=== PATIENT | male | born 1975 | race Two or more races ===

== ENCOUNTER 2018-03-20 08:52 | Inpatient (IN) | payer OTHER ==
[2018-03-20 10:01] VITALS: BMI 25.8
--- NOTE | 2018-03-20 10:15 | HP ---
COWS - Scale Resting Pulse: 0= [place] 80 or Below Sweatin= Chills/Flushing Restless Observation: 3= Extraneous Movement Pupil Size: 1= Pupils >than Normal Bone or Joint Aches: 2= Severe Diffuse Aches Runny Nose/ Eye Tearin= Runny Nose/Eyes GI Upset > 30mins: 3= Vomiting/Diarrhea Tremor Observation: 2= Slight Tremor Visible Yawning Observation: 2= >3x During Session Anxiety or Irritability: 2=Irritable/Anxious Goose Flesh Skin: 0=Smooth Skin COWS Score: 18 CIWA Score - Admission Criteria OASAS Guidelines: Admission for Medically Managed Detox: Requires at least one of the followin. CIWA greater than 12 2. Seizures within the past 24 hours 3. Delirium tremens within the past 24 hours 4. Hallucinations within the past 24 hours 5. Acute intervention needed for co occurring medical disorder 6. Acute intervention needed for co occurring psychiatric disorder 7. Severe withdrawal that cannot be handled at a lower level of care (continued vomiting, continued diarrhea, abnormal vital signs) requiring intravenous medication and/or fluids 8. Admission ROS [facility] - [facility] Chief Complaint: i need help to stop using heroin Allergies/Adverse Reactions: Allergies Allergy/AdvReac Type Severity Reaction Status Date / Time No Known Allergies Allergy Verified 03/20/18 10:11 History of Present Illness: this 43 yers old male with heroin dependence,seeking detox,withdrawal symptom, last detox [facility] 12/11 completed nicotine dependence weight loss multiple admissions in detox but keep relapsing longest period of sobriety 5 years plan for rehab after detox - Ebola screening Have you traveled outside of the country in the last 21 days: No (N) Have you had contact with anyone from an Ebola affected area: No Have you been sick,other than usual withdrawal symptoms: No Do you have a fever: No - Review of Systems Constitutional: Chills, Loss of Appetite, Malaise, Night Sweats, Changes in sleep, Weakness, Unintentional Wgt. Loss EENT: reports: Tearing, Nose Congestion Respiratory: reports: No Symptoms reported Cardiac: reports: No Symptoms Reported GI: reports: Diarrhea, Nausea, Vomiting, Abdominal cramping : reports: No Symptoms Reported Integumentary: reports: Dryness Neuro: reports: Headache, Tremors Endocrine: reports: No Symptoms Reported Hematology: reports: No Symptoms Reported Psychiatric: reports: No Sypmtoms Reported, Judgement Intact, Mood/Affect Appropiate, Orientated x3, other Patient History - Patient Medical History Hx Anemia: No Hx Asthma: No Hx Chronic Obstructive Pulmonary Disease (COPD): No Hx Cancer: No Hx Cardiac Disorders: No Hx Congestive Heart Failure: No Hx Hypertension: No Hx Hypercholesterolemia: No Hx Pacemaker: No HX Cerebrovascular Accident: No Hx Seizures: No Hx Dementia: No Hx Diabetes: No Hx Gastrointestinal Disorders: No Hx Liver Disease: No Hx Genitourinary Disorders: No Hx Sexually Transmitted Disorders: No Hx Renal Disease (ESRD): No Hx Thyroid Disease: No Hx Human Immunodeficiency Virus (HIV): No (last 09/10 negative) Hx Hepatitis C: No Hx Depression: No Hx Suicide Attempt: No Hx Bipolar Disorder: No Hx Schizophrenia: No Other Medical History: no suicidal,no homicidal - Patient Surgical History Past Surgical History: No - PPD History Previous Implant?: Yes Documented Results: Negative w/o proof Implanted On Prior [facility] Admission?: No PPD to be Administered?: Yes - Smoking Cessation Smoking history: Current every day smoker Have you smoked in the past 12 months: Yes Aproximately how many cigarettes per day: 30 Hx Chewing Tobacco Use: No Initiated information on smoking cessation: Yes 'Breaking Loose' booklet given: 03/20/18 - Substance & Tx. History Hx Alcohol Use: No Hx Substance Use: Yes Substance Use Type: Heroin Hx Substance Use Treatment: Yes (12/11 [facility] completed) - Substances Abused Heroin Route: Inhalation Frequency: Daily Amount used: 8 bags Age of first use: 16 Date of Last Use: 03/19/18 Cocaine Route: Inhalation Frequency: 1-2 times per week Amount used: 40$ Age of first use: 19 Date of Last Use: 03/18/18 Family Disease History - Family Disease History Family History: Denies Admission Physical Exam BHS - Vital Signs Vital Signs: Vital Signs - 24 hr 03/20/18 09:58 Temperature 98.3 F Pulse Rate 54 L Respiratory 20 Rate Blood Pressure 111/68 - Physical General Appearance: Yes: Moderate Distress, Tremorous, Irritable, Sweating, Anxious HEENTM: Yes: Normal ENT Inspection, ARLETH, Pharynx Normal Respiratory: Yes: Lungs Clear, Normal Breath Sounds, No Respiratory Distress Neck: Yes: Within Normal Limits, Supple, Trachea in good position Breast: Yes: Within Normal Limits Cardiology: Yes: Bradycardia Abdominal: Yes: Within Normal Limits, Normal Bowel Sounds, Non Tender, Flat, Soft Genitourinary: Yes: Within Normal Limits Musculoskeletal: Yes: full range of Motion, Back pain, Muscle Pain Extremities: Yes: Tremors 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: Yes: Within Normal Limits, board filler II-XII NML intact, Alert, Motor Strength 5/5 Integumentary: Yes: Dry Lymphatic: Yes: Within Normal Limits - Diagnostic (1) Opioid dependence with withdrawal Current Visit: Yes Status: Acute (2) Cocaine dependence Current Visit: Yes Status: Acute (3) Weight loss Current Visit: Yes Status: Acute (4) Nicotine dependence Current Visit: Yes Status: Acute Cleared for Admission [facility] - Detox or Rehab [facility] Level of Care: Medically Managed Detox Regimen/Protocol: Methadone [facility] Breath Alcohol Content Breath Alcohol Content: 0 Urine Drug Screen - Results Drug Screen Negative: No Urine Drug Screen Results: ANA-Cocaine, OPI-Opiates, MTD-Methadone, OXY- Oxycodone, FEN-Fentanyl
[2018-03-20] MEDS ORDERED: MAGNESIUM CITRATE 300 ML BOTTLE PO PRN (10:24)
[2018-03-20] MEDS ORDERED: NICOTINE POLACRILEX 2 MG GUM BUC PRN (10:24)
[2018-03-20] MEDS ORDERED: MAG HYDROX/AL HYDROX/SIMETH 30 ML UNIT-DOSE CUP PO PRN (10:24)
[2018-03-20] MEDS ORDERED: guaiFENesin/D-METHORPHAN HB 10 ML UNIT-DOSE CUPS PO PRN (10:24)
[2018-03-20] MEDS ORDERED: MAGNESIUM HYDROX 2400MG/30ML ORAL SUSPENSION 30 ML CUP PO PRN (10:24)
[2018-03-20] MEDS ORDERED: IBUPROFEN 400 MG TABLET (FP) PO PRN (10:24)
[2018-03-20] MEDS ORDERED: LOPERAMIDE HCL 2 MG CAPSULE PO PRN (10:24)
[2018-03-20] MEDS ORDERED: MENTHOL/PHENOL 1 EACH UD MM PRN (10:24)
[2018-03-20] MEDS ORDERED: P-EPHED 60MG/TRIPROLIDI 2.5MG TABLET PO PRN (10:24)
[2018-03-20] MEDS ORDERED: hydrOXYzine PAMOATE 25 MG CAPSULE (FP) PO PRN (10:24)
[2018-03-20] MEDS ORDERED: ACETAMINOPHEN 325 MG TABLET (FP) PO PRN (10:24)
[2018-03-20] MEDS ORDERED: CYCLOBENZAPRINE HCL 10 MG TABLET (FP) PO PRN (10:26)
[2018-03-20] MEDS ORDERED: METHADONE HCL 10 MG TABLET (FOR DETOX USE ONLY) PO ONE ×2 (10:50→23:00)
[2018-03-20] MEDS: NICOTINE 21 MG/24 HOURS TOPICAL PATCH TD SCH (12:29)
--- NOTE | 2018-03-20 16:46 | EKG ---
Test Reason : Blood Pressure : / mmHG Vent. Rate : 059 BPM Atrial Rate : 059 BPM P-R Int : 148 ms QRS Dur : 086 ms QT Int : 428 ms P-R-T Axes : 003 -13 006 degrees QTc Int : 423 ms SINUS BRADYCARDIA OTHERWISE NORMAL ECG NO PREVIOUS ECGS AVAILABLE Confirmed by ENRIQUE DELANEY MD ([id number]) on 03/20/2018 4:46:26 PM Referred By: Confirmed By:ENRIQUE DELANEY MD
[2018-03-20 18:33] LABS: URINE APPEARANCE SLCLOUDY; URINE BILIRUBIN NEGATIVE (<2.0 mg/dL); URINE COLOR YELLOW; URINE GLUCOSE (UA) NEGATIVE (NEGATIVE); URINE KETONE NEGATIVE (NEGATIVE); URINE LEUK ESTERASE NEGATIVE (NEGATIVE); URINE NITRITE NEGATIVE (NEGATIVE); URINE PROTEIN NEGATIVE (NEGATIVE); URINE UROBILINOGEN NEGATIVE mg/dL (0.2-1.0)
[2018-03-20] MEDS ORDERED: MELATONIN 5 MG TABLETS PO PRN (22:00)
[2018-03-20] MEDS: THIAMINE HCL 100 MG TABLET (FP) PO SCH (22:21)
[2018-03-20] MEDS: cloNIDine HCL 0.1 MG TABLET PO SCH (22:22)
[2018-03-20] MEDS: diazePAM 5 MG TABLET PO PRN (22:22)
[2018-03-21] MEDS ORDERED: METHADONE HCL 10 MG TABLET (FOR DETOX USE ONLY) PO ONE (10:00)
[2018-03-21] MEDS: PRENATAL VITAMINS W/ FOLIC ACID TABLET (FP) PO SCH (10:18)
[2018-03-21] MEDS: NICOTINE 21 MG/24 HOURS TOPICAL PATCH TD SCH (10:19)
[2018-03-21] MEDS: cloNIDine HCL 0.1 MG TABLET PO SCH ×2 (10:19→22:12)
[2018-03-21] MEDS: diazePAM 5 MG TABLET PO PRN (10:19)
--- NOTE | 2018-03-21 10:33 | PN ---
BHS COWS - Scale Resting Pulse: 0= [place] 80 or Below Sweatin=Flushed/Facial Moisture Restless Observation: 1= Difficult to Sit Still Pupil Size: 0= Normal to Room Light Bone or Joint Aches: 2= Severe Diffuse Aches Runny Nose/ Eye Tearin= Runny Nose/Eyes GI Upset > 30mins: 1= Stomach Cramp Tremor Observation of Outstretched Hands: 2= Slight Tremor Visible Yawning Observation: 2= >3x During Session Anxiety or Irritability: 2=Irritable/Anxious Goose Flesh Skin: 3=Piloerection COWS Score: 17 BHS Progress Note (SOAP) Subjective: sweats shakes interrupted sleep body aches agitation chills nasal congestion Objective: 03/21/18 10:32 Vital Signs Temperature 97.5 F L 03/21/18 09:58 Pulse Rate 58 L 03/21/18 09:58 Respiratory Rate 16 03/21/18 09:58 Blood Pressure 131/78 03/21/18 09:58 O2 Sat by Pulse Oximetry (%) Laboratory Tests 03/20/18 11:20 Urine Color Yellow Urine Appearance Slcloudy Urine pH 5.0 Ur Specific [place] 1.027 Urine Protein Negative Urine Glucose (UA) Negative Urine Ketones Negative Urine Blood Negative Urine Nitrite Negative Urine Bilirubin Negative Urine Urobilinogen Negative Ur Leukocyte Esterase Negative labs pending aaox3 ambulating no acute distress Assessment: 03/21/18 10:44 withdrawal sx Plan: continue detox increase fluids labs pending
[2018-03-21 10:58] LABS: HEMATOCRIT 40.5 % (35.4-49); MCH 31.1 pg (25.7-33.7); MEAN CELL VOLUME 97.2 fl (80-96); MEAN PLT VOLUME 10.3 fl (7.5-11.1); PLATELET COUNT 165 K/MM3 (134-434); RBC 4.17 M/mm3 (4.00-5.60); RDW 12.8 % (11.9-15.9); WHITE BLOOD COUNT 9.6 K/mm3 (4.0-10.0)
[2018-03-21 11:37] LABS: ALK PHOS 82 U/L (45-117); ANION GAP 6 MMOL/L (8-16); BILIRUBIN,TOTAL 0.6 mg/dL (0.2-1); BLOOD UREA NITROGEN 15 mg/dL (7-18); CALCIUM 8.4 mg/dL (8.5-10.1); CHLORIDE 102 mmol/L (98-107); CO2 30 mmol/L (21-32); CREATININE 0.9 mg/dL (0.55-1.3); GLUCOSE,RANDOM 132 mg/dL (74-106); POTASSIUM 4.1 mmol/L (3.5-5.1); SGOT/AST 17 U/L (15-37); SGPT/ALT 28 U/L (13-61); SODIUM 137 mmol/L (136-145); TOT PROT 6.7 g/dl (6.4-8.2)
[2018-03-21] MEDS: THIAMINE HCL 100 MG TABLET (FP) PO SCH (22:12)
[2018-03-22] MEDS ORDERED: METHADONE HCL 5 MG TABLET (FOR DETOX USE ONLY) PO ONE (10:00)
[2018-03-22] MEDS: cloNIDine HCL 0.1 MG TABLET PO SCH ×2 (10:05→22:31)
[2018-03-22] MEDS: diazePAM 5 MG TABLET PO PRN ×2 (10:08→22:23)
[2018-03-22] MEDS: NICOTINE 21 MG/24 HOURS TOPICAL PATCH TD SCH (10:09)
[2018-03-22] MEDS: PRENATAL VITAMINS W/ FOLIC ACID TABLET (FP) PO SCH (10:09)
--- NOTE | 2018-03-22 10:45 | PN ---
S COWS - Scale Resting Pulse: 0= [place] 80 or Below Sweatin=Flushed/Facial Moisture Restless Observation: 1= Difficult to Sit Still Pupil Size: 0= Normal to Room Light Bone or Joint Aches: 2= Severe Diffuse Aches Runny Nose/ Eye Tearin= Runny Nose/Eyes GI Upset > 30mins: 0= None Tremor Observation of Outstretched Hands: 2= Slight Tremor Visible Yawning Observation: 1= 1-2x During Session Anxiety or Irritability: 2=Irritable/Anxious Goose Flesh Skin: 3=Piloerection COWS Score: 15 S Progress Note (SOAP) Subjective: nasal congestions teary eyes sweats dry mouth/sore throat chills Objective: 03/22/18 10:42 Vital Signs Temperature 97.8 F 03/22/18 09:11 Pulse Rate 53 L 03/22/18 09:11 Respiratory Rate 18 03/22/18 09:11 Blood Pressure 112/58 L 03/22/18 09:11 O2 Sat by Pulse Oximetry (%) Laboratory Tests 03/20/18 03/21/18 03/21/18 11:20 05:45 05:45 WBC 9.6 RBC 4.17 Hgb 13.0 Hct 40.5 MCV 97.2 H MCH 31.1 MCHC 32.0 RDW 12.8 Plt Count 165 MPV 10.3 Sodium 137 Potassium 4.1 Chloride 102 Carbon Dioxide 30 Anion Gap 6 L BUN 15 Creatinine 0.9 Creat Clearance w eGFR > 60 Random Glucose 132 H Calcium 8.4 L Total Bilirubin 0.6 AST 17 ALT 28 Alkaline Phosphatase 82 Total Protein 6.7 Albumin 4.0 Urine Color Yellow Urine Appearance Slcloudy Urine pH 5.0 Ur Specific [place] 1.027 Urine Protein Negative Urine Glucose (UA) Negative Urine Ketones Negative Urine Blood Negative Urine Nitrite Negative Urine Bilirubin Negative Urine Urobilinogen Negative Ur Leukocyte Esterase Negative RPR Titer 03/21/18 05:45 WBC RBC Hgb Hct MCV MCH MCHC RDW Plt Count MPV Sodium Potassium Chloride Carbon Dioxide Anion Gap BUN Creatinine Creat Clearance w eGFR Random Glucose Calcium Total Bilirubin AST ALT Alkaline Phosphatase Total Protein Albumin Urine Color Urine Appearance Urine pH Ur Specific [place] Urine Protein Urine Glucose (UA) Urine Ketones Urine Blood Urine Nitrite Urine Bilirubin Urine Urobilinogen Ur Leukocyte Esterase RPR Titer Nonreactive labs noted aaox3 ambulating no acute distress Assessment: 03/22/18 10:43 withdrawal sx mouth/throat assessed; no redness noted no s/s of throat infection noted Plan: continue detox increase fluids ocean spray throat lozenges try to keep room cool; apply less heat from radiator
[2018-03-22] MEDS ORDERED: SODIUM CHLORIDE NASAL SPRAY 44 ML BOTTLE NS PRN (11:30)
[2018-03-22] MEDS: THIAMINE HCL 100 MG TABLET (FP) PO SCH (22:31)
[2018-03-22] MEDS ORDERED: PT OWN MED DRAWER 7, Y5N ONE (23:05)
[2018-03-23 09:30] VITALS: BP 110/58; PULSE 58; TEMP 97.7
[2018-03-23] MEDS ORDERED: METHADONE HCL 5 MG TABLET (FOR DETOX USE ONLY) PO ONE (10:00)
[2018-03-23] MEDS: PRENATAL VITAMINS W/ FOLIC ACID TABLET (FP) PO SCH (10:11)
[2018-03-23] MEDS: NICOTINE 21 MG/24 HOURS TOPICAL PATCH TD SCH (10:11)
[2018-03-23] MEDS: cloNIDine HCL 0.1 MG TABLET PO SCH (10:11)
--- NOTE | 2018-03-23 10:44 | PN ---
S Progress Note Note: PATIENT CONTINUES WITH DETOX REGIMEN. C/O INTERRUPTED SLEEP. PULLED BLANKET OVER FACE AND DID NOT WANT TO SPEAK WITH PROVIDER. Vital Signs Temperature 97.7 F 03/23/18 09:30 Pulse Rate 58 L 03/23/18 09:30 Respiratory Rate 16 03/23/18 09:30 Blood Pressure 110/58 L 03/23/18 09:30 O2 Sat by Pulse Oximetry (%) Laboratory Tests 03/20/18 03/21/18 03/21/18 11:20 05:45 05:45 WBC 9.6 RBC 4.17 Hgb 13.0 Hct 40.5 MCV 97.2 H MCH 31.1 MCHC 32.0 RDW 12.8 Plt Count 165 MPV 10.3 Sodium 137 Potassium 4.1 Chloride 102 Carbon Dioxide 30 Anion Gap 6 L BUN 15 Creatinine 0.9 Creat Clearance w eGFR > 60 Random Glucose 132 H Calcium 8.4 L Total Bilirubin 0.6 AST 17 ALT 28 Alkaline Phosphatase 82 Total Protein 6.7 Albumin 4.0 Urine Color Yellow Urine Appearance Slcloudy Urine pH 5.0 Ur Specific [place] 1.027 Urine Protein Negative Urine Glucose (UA) Negative Urine Ketones Negative Urine Blood Negative Urine Nitrite Negative Urine Bilirubin Negative Urine Urobilinogen Negative Ur Leukocyte Esterase Negative RPR Titer 03/21/18 05:45 WBC RBC Hgb Hct MCV MCH MCHC RDW Plt Count MPV Sodium Potassium Chloride Carbon Dioxide Anion Gap BUN Creatinine Creat Clearance w eGFR Random Glucose Calcium Total Bilirubin AST ALT Alkaline Phosphatase Total Protein Albumin Urine Color Urine Appearance Urine pH Ur Specific [place] Urine Protein Urine Glucose (UA) Urine Ketones Urine Blood Urine Nitrite Urine Bilirubin Urine Urobilinogen Ur Leukocyte Esterase RPR Titer Nonreactive PE; ALERT AND ORIENTED X 3 SLEEPY AND TIRED A/P WITHDRAWAL SX CONTINUE DETOX CONTINUE TO MONITOR
--- NOTE | 2018-03-23 12:40 | DS ---
[facility] Detox Discharge Summary Admission Date: 03/20/18 Discharge Date: 03/23/18 - History Present History: Cocaine Dependence, Opioid Dependence Additional Comments: PATIENT REQUESTED TO SIGN OUT AMA. PATIENT ENCOURAGED TO COMPLETE DETOX WITH NO EFFECT. PATIENT EXPLAINED RISK FACTORS OF RELAPSE WITH SIGNING OUT AND ENCOURAGED TO ATTEND GROUP MEETINGS, N/A. PATIENT ADVISED BY STAFF TO SEEK MEDICAL ATTENTION FOR WORSENING WITHDRAWAL SYMPTOMS. - Physical Exam Results Vital Signs: Vital Signs Temperature 97.7 F 03/23/18 09:30 Pulse Rate 58 L 03/23/18 09:30 Respiratory Rate 16 03/23/18 09:30 Blood Pressure 110/58 L 03/23/18 09:30 O2 Sat by Pulse Oximetry (%) - Medication Discharge Medications: Ambulatory Orders NK [No Known Home Medication] 03/20/18 - Diagnosis (1) Opioid dependence with withdrawal Current Visit: Yes Status: Acute - AMA Did Patient Leave Against Medical Advice: Yes
[2018-03-24] MEDS ORDERED: METHADONE HCL 10 MG TABLET (FOR DETOX USE ONLY) PO ONE (10:00)
[2018-03-25] MEDS ORDERED: METHADONE HCL 5 MG TABLET (FOR DETOX USE ONLY) PO ONE (06:00)
== END 2018-03-23 11:04 | disposition left against medical advice (07) | DRG 770 ==
LOC: YASAS 08:52 → Y6N 10:24
PROC: HZ2ZZZZ Detoxification Services for Substance Abuse Treatment (ICD-10-PCS; principal; 2018-03-20)
DX: F11.23 Opioid dependence with withdrawal (principal); F14.20 Cocaine dependence, uncomplicated; F17.210 Nicotine dependence, cigarettes, uncomplicated; R63.4 Abnormal weight loss; Z68.25 Body mass index [BMI] 25.0-25.9, adult
CPT/HCPCS: 36415; 80053; 81003; 85027; 86593; 93005; 93010; J0735

== ENCOUNTER 2018-04-22 15:29 | Inpatient (IN) | payer OTHER ==
[2018-04-22 22:34] VITALS: BMI 25.8
--- NOTE | 2018-04-22 23:26 | HP ---
"COWS - Scale Resting Pulse: 0= [place] 80 or Below Sweatin=Flushed/Facial Moisture Restless Observation: 3= Extraneous Movement Pupil Size: 2= Moderately Dilated (Pupils = 6 mm) Bone or Joint Aches: 2= Severe Diffuse Aches Runny Nose/ Eye Tearin= Constantly Teary/Runny GI Upset > 30mins: 1= Stomach Cramp Tremor Observation: 2= Slight Tremor Visible Yawning Observation: 1= 1-2x During Session Anxiety or Irritability: 1=Feels Anxious/Irritable Goose Flesh Skin: 0=Smooth Skin COWS Score: 18 CIWA Score - Admission Criteria OASAS Guidelines: Admission for Medically Managed Detox: Requires at least one of the followin. CIWA greater than 12 2. Seizures within the past 24 hours 3. Delirium tremens within the past 24 hours 4. Hallucinations within the past 24 hours 5. Acute intervention needed for co occurring medical disorder 6. Acute intervention needed for co occurring psychiatric disorder 7. Severe withdrawal that cannot be handled at a lower level of care (continued vomiting, continued diarrhea, abnormal vital signs) requiring intravenous medication and/or fluids 8. Admission ROS [facility] - [facility] Chief Complaint: Here for heroin withdrawal. Allergies/Adverse Reactions: Allergies Allergy/AdvReac Type Severity Reaction Status Date / Time No Known Allergies Allergy Verified 04/22/18 22:49 History of Present Illness: Here 1 month ago and relapsed after 2 days. Heroin use since age 18. Cocaine use since age 19. Nicotine use since age 17. Denies seizures,blackouts, or overdoses. States longest hx sobriety was 5 years, but that was over 5 years ago. EKG from 03/20/18 reviewed - NSR w/Bradycardia. QT Int: 428. Denies chest pain / SOB. Search Terms: Camacho Cortez, 1975 Search Date: 04/22/2018 11:16:46 PM The Drug Utilization Report below displays all of the controlled substance prescriptions, if any, that your patient has filled in the last twelve months. The information displayed on this report is compiled from pharmacy submissions to the Department, and accurately reflects the information as submitted by the pharmacies. This report was requested by: Aneta Smallwood | Reference #: [id number] There are no results for the search terms that you entered. Exam Limitations: No Limitations - Ebola screening Have you traveled outside of the country in the last 21 days: No Have you had contact with anyone from an Ebola affected area: No Have you been sick,other than usual withdrawal symptoms: No Do you have a fever: No - Review of Systems Constitutional: Chills, Diaphoresis EENT: reports: Blurred Vision, Nose Congestion Respiratory: reports: No Symptoms reported Cardiac: reports: No Symptoms Reported GI: reports: Nausea : reports: No Symptoms Reported Musculoskeletal: reports: Back Pain (r/t to withdrawal), Joint Pain (r/t to withdrawal), Muscle Pain (r/t to withdrawal) Integumentary: reports: No Symptoms Reported Neuro: reports: Headache (Mild), Tremors Endocrine: reports: Increased Thirst Hematology: reports: No Symptoms Reported Psychiatric: reports: Judgement Intact, Orientated x3, Agitated, Anxious Patient History - Patient Medical History Hx Anemia: No Hx Asthma: No Hx Chronic Obstructive Pulmonary Disease (COPD): No Hx Cancer: No Hx Cardiac Disorders: No Hx Congestive Heart Failure: No Hx Hypertension: No Hx Hypercholesterolemia: No Hx Pacemaker: No HX Cerebrovascular Accident: No Hx Seizures: No Hx Dementia: No Hx Diabetes: No Hx Gastrointestinal Disorders: No Hx Liver Disease: No Hx Genitourinary Disorders: No Hx Sexually Transmitted Disorders: No Hx Renal Disease (ESRD): No Hx Thyroid Disease: No Hx Human Immunodeficiency Virus (HIV): No (last 09/10 negative) Hx Hepatitis C: No Hx Depression: No Hx Suicide Attempt: No Hx Bipolar Disorder: No Hx Schizophrenia: No - Patient Surgical History Past Surgical History: No Hx Neurologic Surgery: No Hx Cataract Extraction: No Hx Cardiac Surgery: No Hx Lung Surgery: No Hx Breast Surgery: No Hx Breast Biopsy: No Hx Abdominal Surgery: No Hx Appendectomy: No Hx Cholecystectomy: No Hx Genitourinary Surgery: No Hx Section: No Hx Orthopedic Surgery: No Anesthesia Reaction: No - PPD History Previous Implant?: Yes Documented Results: Negative w/proof Implanted On Prior R Admission?: Yes Date: 03/22/18 PPD to be Administered?: No - Smoking Cessation Smoking history: Current every day smoker Have you smoked in the past 12 months: Yes Aproximately how many cigarettes per day: 30 Cigars Per Day: 0 Hx Chewing Tobacco Use: No Initiated information on smoking cessation: Yes 'Breaking Loose' booklet given: 04/22/18 - Substance & Tx. History Hx Alcohol Use: No Hx Substance Use: Yes Substance Use Type: Cocaine, Heroin Hx Substance Use Treatment: Yes (detox, rehab) - Substances Abused Heroin Route: sniff Frequency: Daily Amount used: 9 bags Age of first use: 18 Date of Last Use: 04/22/18 Cocaine Route: Smoking Frequency: Daily Amount used: $40 Age of first use: 19 Date of Last Use: 04/22/18 Admission Physical Exam [facility] - Vital Signs Vital Signs: Vital Signs - 24 hr 04/22/18 22:33 Temperature 98.1 F Pulse Rate 67 Respiratory 18 Rate Blood Pressure 124/66 - Physical General Appearance: Yes: Nourished, Appropriately Dressed, Mild Distress, Tremorous, Sweating, Anxious HEENTM: Yes: EOMI, Hearing grossly Normal, Normocephalic, Normal Voice, ARLETH ( Pupils = 6 mm), Pharynx Normal, Rhinorrhea, Other (Tearing) Respiratory: Yes: Chest Non-Tender, Lungs Clear, Normal Breath Sounds, No Respiratory Distress Neck: Yes: No masses,lesions,Nodules, Supple Breast: Yes: Breast Exam Deferred Cardiology: Yes: Regular Rhythm, Regular Rate, S1, S2 Abdominal: Yes: Non Tender, Soft, Increased Bowel Sounds Genitourinary: Yes: Within Normal Limits Back: Yes: Normal Inspection Musculoskeletal: Yes: full range of Motion, Gait Steady Extremities: Yes: Normal Capillary Refill, Normal Range of Motion, Non-Tender, Tremors (Tremors at rest which increase w/ arm elevation) 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: Yes: inspector printed circuit boards II-XII NML intact, Fully Oriented, Motor Strength 5/5, Normal Mood/Affect Integumentary: Yes: Normal Color, Warm Lymphatic: Yes: Within Normal Limits - Diagnostic (1) Cocaine dependence Current Visit: Yes Status: Chronic Qualifiers: Substance use status: uncomplicated Qualified Code(s): F14.20 - Cocaine dependence, uncomplicated (2) Nicotine dependence Current Visit: Yes Status: Chronic Qualifiers: Nicotine product type: cigarettes Substance use status: uncomplicated Qualified Code(s): F17.210 - Nicotine dependence, cigarettes, uncomplicated (3) Opioid dependence with withdrawal Current Visit: Yes Status: Acute Cleared for Admission [facility] - Detox or Rehab [facility] Level of Care: Medically Managed Detox Regimen/Protocol: Methadone [facility] Breath Alcohol Content Breath Alcohol Content: 0 Urine Drug Screen - Results Drug Screen Negative: No Urine Drug Screen Results: ANA-Cocaine, OPI-Opiates, FEN-Fentanyl"
[2018-04-22] MEDS ORDERED: ACETAMINOPHEN 325 MG TABLET (FP) PO PRN (23:42)
[2018-04-22] MEDS ORDERED: P-EPHED 60MG/TRIPROLIDI 2.5MG TABLET PO PRN (23:42)
[2018-04-22] MEDS ORDERED: IBUPROFEN 400 MG TABLET (FP) PO PRN (23:42)
[2018-04-22] MEDS ORDERED: MENTHOL/PHENOL 1 EACH UD MM PRN (23:42)
[2018-04-22] MEDS ORDERED: MAG HYDROX/AL HYDROX/SIMETH 30 ML UNIT-DOSE CUP PO PRN (23:42)
[2018-04-22] MEDS ORDERED: MAGNESIUM HYDROX 2400MG/30ML ORAL SUSPENSION 30 ML CUP PO PRN (23:42)
[2018-04-22] MEDS ORDERED: LOPERAMIDE HCL 2 MG CAPSULE PO PRN (23:42)
[2018-04-22] MEDS ORDERED: MAGNESIUM CITRATE 300 ML BOTTLE PO PRN (23:42)
[2018-04-22] MEDS ORDERED: NICOTINE POLACRILEX 4 MG GUM BUC PRN (23:48)
[2018-04-23] MEDS ORDERED: METHADONE HCL 10 MG TABLET (FOR DETOX USE ONLY) PO ONE ×3 (00:13→23:00)
[2018-04-23] MEDS: diazePAM 5 MG TABLET PO PRN ×3 (00:52→22:21)
[2018-04-23] MEDS: PRENATAL VITAMINS W/ FOLIC ACID TABLET (FP) PO SCH (10:17)
[2018-04-23] MEDS: NICOTINE 21 MG/24 HOURS TOPICAL PATCH TD SCH (10:18)
[2018-04-23 10:51] LABS: HEMATOCRIT 39.9 % (35.4-49); HEMOGLOBIN 13.5 GM/dL (11.7-16.9); MCH 32.1 pg (25.7-33.7); MCHC 33.9 g/dl (32.0-35.9); MEAN CELL VOLUME 94.9 fl (80-96); MEAN PLT VOLUME 10.2 fl (7.5-11.1); PLATELET COUNT 147 K/MM3 (134-434); RDW 13.1 % (11.9-15.9); WHITE BLOOD COUNT 6.5 K/mm3 (4.0-10.0)
--- NOTE | 2018-04-23 11:07 | PN ---
BHS COWS - Scale Resting Pulse: 0= [place] 80 or Below Sweatin= Chills/Flushing Restless Observation: 1= Difficult to Sit Still Pupil Size: 1= Pupils >than Normal Bone or Joint Aches: 2= Severe Diffuse Aches Runny Nose/ Eye Tearin= Nasal Congestion GI Upset > 30mins: 2= Nausea/Diarrhea Tremor Observation of Outstretched Hands: 2= Slight Tremor Visible Yawning Observation: 2= >3x During Session Anxiety or Irritability: 2=Irritable/Anxious Goose Flesh Skin: 0=Smooth Skin COWS Score: 14 BHS Progress Note (SOAP) Subjective: body aches joints pain tremor sweating Objective: 04/23/18 11:06 Vital Signs Temperature 97.8 F 04/23/18 09:08 Pulse Rate 64 04/23/18 09:08 Respiratory Rate 18 04/23/18 09:08 Blood Pressure 107/72 04/23/18 09:08 O2 Sat by Pulse Oximetry (%) Laboratory Last Values WBC 6.5 K/mm3 (4.0-10.0) 04/23/18 07:00 RBC 4.20 M/mm3 (4.00-5.60) 04/23/18 07:00 Hgb 13.5 GM/dL (11.7-16.9) 04/23/18 07:00 Hct 39.9 % (35.4-49) 04/23/18 07:00 MCV 94.9 fl (80-96) 04/23/18 07:00 MCH 32.1 pg (25.7-33.7) 04/23/18 07:00 MCHC 33.9 g/dl (32.0-35.9) 04/23/18 07:00 RDW 13.1 % (11.9-15.9) 04/23/18 07:00 Plt Count 147 K/MM3 (134-434) 04/23/18 07:00 MPV 10.2 fl (7.5-11.1) 04/23/18 07:00 lab noted Assessment: 04/23/18 11:06 withdrawal sx Plan: continue detox
[2018-04-23 11:11] LABS: ALBUMIN 3.7 g/dl (3.4-5.0); ALK PHOS 69 U/L (45-117); ANION GAP 7 MMOL/L (8-16); BILIRUBIN,TOTAL 0.8 mg/dL (0.2-1); BLOOD UREA NITROGEN 13 mg/dL (7-18); CALCIUM 8.9 mg/dL (8.5-10.1); CHLORIDE 106 mmol/L (98-107); CO2 29 mmol/L (21-32); CREATININE 0.8 mg/dL (0.55-1.3); GLUCOSE,RANDOM 85 mg/dL (74-106); POTASSIUM 4.1 mmol/L (3.5-5.1); SGOT/AST 14 U/L (15-37); SGPT/ALT 24 U/L (13-61); SODIUM 142 mmol/L (136-145); TOT PROT 6.3 g/dl (6.4-8.2)
[2018-04-23 12:07] LABS: URINE APPEARANCE CLEAR; URINE BILIRUBIN NEGATIVE (<2.0 mg/dL); URINE COLOR LTYELLOW; URINE GLUCOSE (UA) NEGATIVE (NEGATIVE); URINE KETONE NEGATIVE (NEGATIVE); URINE LEUK ESTERASE NEGATIVE (NEGATIVE); URINE NITRITE NEGATIVE (NEGATIVE); URINE PROTEIN NEGATIVE (NEGATIVE); URINE UROBILINOGEN NEGATIVE mg/dL (0.2-1.0)
[2018-04-23] MEDS: THIAMINE HCL 100 MG TABLET (FP) PO SCH (22:21)
--- NOTE | 2018-04-24 09:44 | PN ---
BHS COWS - Scale Resting Pulse: 0= [place] 80 or Below Sweatin= Chills/Flushing Restless Observation: 1= Difficult to Sit Still Pupil Size: 1= Pupils >than Normal Bone or Joint Aches: 1= Mild Discomfort Runny Nose/ Eye Tearin= Nasal Congestion GI Upset > 30mins: 1= Stomach Cramp Tremor Observation of Outstretched Hands: 2= Slight Tremor Visible Yawning Observation: 1= 1-2x During Session Anxiety or Irritability: 1=Feels Anxious/Irritable Goose Flesh Skin: 0=Smooth Skin COWS Score: 10 BHS Progress Note (SOAP) Subjective: tremor body aches joints pain sweating restlessness Objective: 04/24/18 09:43 Vital Signs Temperature 97.8 F 04/24/18 09:18 Pulse Rate 64 04/24/18 09:18 Respiratory Rate 18 04/24/18 09:18 Blood Pressure 109/61 04/24/18 09:18 O2 Sat by Pulse Oximetry (%) Laboratory Last Values WBC 6.5 K/mm3 (4.0-10.0) 04/23/18 07:00 RBC 4.20 M/mm3 (4.00-5.60) 04/23/18 07:00 Hgb 13.5 GM/dL (11.7-16.9) 04/23/18 07:00 Hct 39.9 % (35.4-49) 04/23/18 07:00 MCV 94.9 fl (80-96) 04/23/18 07:00 MCH 32.1 pg (25.7-33.7) 04/23/18 07:00 MCHC 33.9 g/dl (32.0-35.9) 04/23/18 07:00 RDW 13.1 % (11.9-15.9) 04/23/18 07:00 Plt Count 147 K/MM3 (134-434) 04/23/18 07:00 MPV 10.2 fl (7.5-11.1) 04/23/18 07:00 Sodium 142 mmol/L (136-145) 04/23/18 07:00 Potassium 4.1 mmol/L (3.5-5.1) 04/23/18 07:00 Chloride 106 mmol/L (98-107) 04/23/18 07:00 Carbon Dioxide 29 mmol/L (21-32) 04/23/18 07:00 Anion Gap 7 MMOL/L (8-16) L 04/23/18 07:00 BUN 13 mg/dL (7-18) 04/23/18 07:00 Creatinine 0.8 mg/dL (0.55-1.3) 04/23/18 07:00 Creat Clearance w eGFR > 60 (>60) 04/23/18 07:00 Random Glucose 85 mg/dL (74-106) 04/23/18 07:00 Calcium 8.9 mg/dL (8.5-10.1) 04/23/18 07:00 Total Bilirubin 0.8 mg/dL (0.2-1) 04/23/18 07:00 AST 14 U/L (15-37) L 04/23/18 07:00 ALT 24 U/L (13-61) 04/23/18 07:00 Alkaline Phosphatase 69 U/L (45-117) 04/23/18 07:00 Total Protein 6.3 g/dl (6.4-8.2) L 04/23/18 07:00 Albumin 3.7 g/dl (3.4-5.0) 04/23/18 07:00 Urine Color Ltyellow 04/23/18 08:00 Urine Appearance Clear 04/23/18 08:00 Urine pH 6.0 (5.0-8.0) 04/23/18 08:00 Ur Specific [place] 1.015 (1.010-1.035) 04/23/18 08:00 Urine Protein Negative (NEGATIVE) 04/23/18 08:00 Urine Glucose (UA) Negative (NEGATIVE) 04/23/18 08:00 Urine Ketones Negative (NEGATIVE) 04/23/18 08:00 Urine Blood Negative (NEGATIVE) 04/23/18 08:00 Urine Nitrite Negative (NEGATIVE) 04/23/18 08:00 Urine Bilirubin Negative (<2.0 mg/dL) 04/23/18 08:00 Urine Urobilinogen Negative mg/dL (0.2-1.0) 04/23/18 08:00 Ur Leukocyte Esterase Negative (NEGATIVE) 04/23/18 08:00 RPR Titer Nonreactive (NONREACTIVE) 04/23/18 07:00 lab noted Assessment: 04/24/18 09:43 withdrawal sx Plan: continue detox
[2018-04-24] MEDS ORDERED: METHADONE HCL 10 MG TABLET (FOR DETOX USE ONLY) PO ONE (10:00)
[2018-04-24] MEDS: PRENATAL VITAMINS W/ FOLIC ACID TABLET (FP) PO SCH (10:31)
[2018-04-24] MEDS: NICOTINE 21 MG/24 HOURS TOPICAL PATCH TD SCH (10:31)
[2018-04-24] MEDS: THIAMINE HCL 100 MG TABLET (FP) PO SCH (22:07)
[2018-04-24] MEDS: diazePAM 5 MG TABLET PO PRN (22:07)
[2018-04-24] MEDS: MELATONIN 5 MG TABLETS PO PRN (22:08)
[2018-04-25] MEDS ORDERED: BACLOFEN 10 MG TABLET (FP) PO ONE (09:46)
--- NOTE | 2018-04-25 09:51 | PN ---
BHS Progress Note (SOAP) Subjective: muscle cramping body aches tremor anxiety sweating Objective: 04/25/18 09:52 Vital Signs Temperature 97.0 F L 04/25/18 09:15 Pulse Rate 60 04/25/18 09:15 Respiratory Rate 18 04/25/18 09:15 Blood Pressure 106/60 04/25/18 09:15 O2 Sat by Pulse Oximetry (%) Laboratory Last Values WBC 6.5 K/mm3 (4.0-10.0) 04/23/18 07:00 RBC 4.20 M/mm3 (4.00-5.60) 04/23/18 07:00 Hgb 13.5 GM/dL (11.7-16.9) 04/23/18 07:00 Hct 39.9 % (35.4-49) 04/23/18 07:00 MCV 94.9 fl (80-96) 04/23/18 07:00 MCH 32.1 pg (25.7-33.7) 04/23/18 07:00 MCHC 33.9 g/dl (32.0-35.9) 04/23/18 07:00 RDW 13.1 % (11.9-15.9) 04/23/18 07:00 Plt Count 147 K/MM3 (134-434) 04/23/18 07:00 MPV 10.2 fl (7.5-11.1) 04/23/18 07:00 Sodium 142 mmol/L (136-145) 04/23/18 07:00 Potassium 4.1 mmol/L (3.5-5.1) 04/23/18 07:00 Chloride 106 mmol/L (98-107) 04/23/18 07:00 Carbon Dioxide 29 mmol/L (21-32) 04/23/18 07:00 Anion Gap 7 MMOL/L (8-16) L 04/23/18 07:00 BUN 13 mg/dL (7-18) 04/23/18 07:00 Creatinine 0.8 mg/dL (0.55-1.3) 04/23/18 07:00 Creat Clearance w eGFR > 60 (>60) 04/23/18 07:00 Random Glucose 85 mg/dL (74-106) 04/23/18 07:00 Calcium 8.9 mg/dL (8.5-10.1) 04/23/18 07:00 Total Bilirubin 0.8 mg/dL (0.2-1) 04/23/18 07:00 AST 14 U/L (15-37) L 04/23/18 07:00 ALT 24 U/L (13-61) 04/23/18 07:00 Alkaline Phosphatase 69 U/L (45-117) 04/23/18 07:00 Total Protein 6.3 g/dl (6.4-8.2) L 04/23/18 07:00 Albumin 3.7 g/dl (3.4-5.0) 04/23/18 07:00 Urine Color Ltyellow 04/23/18 08:00 Urine Appearance Clear 04/23/18 08:00 Urine pH 6.0 (5.0-8.0) 04/23/18 08:00 Ur Specific [place] 1.015 (1.010-1.035) 04/23/18 08:00 Urine Protein Negative (NEGATIVE) 04/23/18 08:00 Urine Glucose (UA) Negative (NEGATIVE) 04/23/18 08:00 Urine Ketones Negative (NEGATIVE) 04/23/18 08:00 Urine Blood Negative (NEGATIVE) 04/23/18 08:00 Urine Nitrite Negative (NEGATIVE) 04/23/18 08:00 Urine Bilirubin Negative (<2.0 mg/dL) 04/23/18 08:00 Urine Urobilinogen Negative mg/dL (0.2-1.0) 04/23/18 08:00 Ur Leukocyte Esterase Negative (NEGATIVE) 04/23/18 08:00 RPR Titer Nonreactive (NONREACTIVE) 04/23/18 07:00 lab noted Assessment: 04/25/18 09:52 withdrawal sx Plan: continue detox
[2018-04-25] MEDS ORDERED: METHADONE HCL 5 MG TABLET (FOR DETOX USE ONLY) PO ONE (10:00)
[2018-04-25] MEDS: PRENATAL VITAMINS W/ FOLIC ACID TABLET (FP) PO SCH (11:08)
[2018-04-25] MEDS: NICOTINE 21 MG/24 HOURS TOPICAL PATCH TD SCH (11:09)
[2018-04-25] MEDS: diazePAM 5 MG TABLET PO PRN (22:30)
[2018-04-25] MEDS: THIAMINE HCL 100 MG TABLET (FP) PO SCH (22:30)
[2018-04-25] MEDS: MELATONIN 5 MG TABLETS PO PRN (22:31)
[2018-04-26] MEDS ORDERED: METHADONE HCL 5 MG TABLET (FOR DETOX USE ONLY) PO ONE (10:00)
[2018-04-26] MEDS: PRENATAL VITAMINS W/ FOLIC ACID TABLET (FP) PO SCH (10:29)
[2018-04-26] MEDS: NICOTINE 21 MG/24 HOURS TOPICAL PATCH TD SCH (11:08)
--- NOTE | 2018-04-26 17:10 | PN ---
BHS Progress Note (SOAP) Subjective: Body Aches, Sweating, Anxious. Objective: PATIENT A & O X 3, OBSERVED AMBULATING ON UNIT. IN NO ACUTE DISTRESS. 04/26/18 17:11 Vital Signs Temperature 96.7 F L 04/26/18 17:07 Pulse Rate 62 04/26/18 17:07 Respiratory Rate 16 04/26/18 17:07 Blood Pressure 116/63 04/26/18 17:07 O2 Sat by Pulse Oximetry (%) Laboratory Tests 04/23/18 04/23/18 04/23/18 07:00 07:00 07:00 WBC 6.5 RBC 4.20 Hgb 13.5 Hct 39.9 MCV 94.9 MCH 32.1 MCHC 33.9 RDW 13.1 Plt Count 147 MPV 10.2 Sodium 142 Potassium 4.1 Chloride 106 Carbon Dioxide 29 Anion Gap 7 L BUN 13 Creatinine 0.8 Creat Clearance w eGFR > 60 Random Glucose 85 Calcium 8.9 Total Bilirubin 0.8 AST 14 L ALT 24 Alkaline Phosphatase 69 Total Protein 6.3 L Albumin 3.7 Urine Color Urine Appearance Urine pH Ur Specific [place] Urine Protein Urine Glucose (UA) Urine Ketones Urine Blood Urine Nitrite Urine Bilirubin Urine Urobilinogen Ur Leukocyte Esterase RPR Titer Nonreactive 04/23/18 08:00 WBC RBC Hgb Hct MCV MCH MCHC RDW Plt Count MPV Sodium Potassium Chloride Carbon Dioxide Anion Gap BUN Creatinine Creat Clearance w eGFR Random Glucose Calcium Total Bilirubin AST ALT Alkaline Phosphatase Total Protein Albumin Urine Color Ltyellow Urine Appearance Clear Urine pH 6.0 Ur Specific [place] 1.015 Urine Protein Negative Urine Glucose (UA) Negative Urine Ketones Negative Urine Blood Negative Urine Nitrite Negative Urine Bilirubin Negative Urine Urobilinogen Negative Ur Leukocyte Esterase Negative RPR Titer LABS NOTED. Assessment: 04/26/18 17:11 WITHDRAWAL SYMPTOMS. Plan: CONTINUE DETOX. INCREASE DAILY PO FLUID INTAKE.
[2018-04-26] MEDS: THIAMINE HCL 100 MG TABLET (FP) PO SCH (22:45)
[2018-04-26] MEDS: TOLNAFTATE 1% CREAM 15 GM TUBE TP SCH (22:46)
[2018-04-27] MEDS ORDERED: METHADONE HCL 10 MG TABLET (FOR DETOX USE ONLY) PO ONE (10:00)
[2018-04-27] MEDS: PRENATAL VITAMINS W/ FOLIC ACID TABLET (FP) PO SCH (10:18)
[2018-04-27] MEDS: NICOTINE 21 MG/24 HOURS TOPICAL PATCH TD SCH (10:19)
[2018-04-27] MEDS: TOLNAFTATE 1% CREAM 15 GM TUBE TP SCH ×2 (10:19→22:21)
--- NOTE | 2018-04-27 15:08 | PN ---
BHS Progress Note (SOAP) Subjective: Body Aches, Sweating. Objective: PATIENT A & O X 3, OBSERVED AMBULATING ON UNIT. IN NO ACUTE DISTRESS. 04/27/18 15:07 Vital Signs Temperature 96.4 F L 04/27/18 13:47 Pulse Rate 69 04/27/18 13:47 Respiratory Rate 18 04/27/18 13:47 Blood Pressure 120/74 04/27/18 13:47 O2 Sat by Pulse Oximetry (%) Laboratory Tests 04/23/18 04/23/18 04/23/18 07:00 07:00 07:00 WBC 6.5 RBC 4.20 Hgb 13.5 Hct 39.9 MCV 94.9 MCH 32.1 MCHC 33.9 RDW 13.1 Plt Count 147 MPV 10.2 Sodium 142 Potassium 4.1 Chloride 106 Carbon Dioxide 29 Anion Gap 7 L BUN 13 Creatinine 0.8 Creat Clearance w eGFR > 60 Random Glucose 85 Calcium 8.9 Total Bilirubin 0.8 AST 14 L ALT 24 Alkaline Phosphatase 69 Total Protein 6.3 L Albumin 3.7 Urine Color Urine Appearance Urine pH Ur Specific [place] Urine Protein Urine Glucose (UA) Urine Ketones Urine Blood Urine Nitrite Urine Bilirubin Urine Urobilinogen Ur Leukocyte Esterase RPR Titer Nonreactive 04/23/18 08:00 WBC RBC Hgb Hct MCV MCH MCHC RDW Plt Count MPV Sodium Potassium Chloride Carbon Dioxide Anion Gap BUN Creatinine Creat Clearance w eGFR Random Glucose Calcium Total Bilirubin AST ALT Alkaline Phosphatase Total Protein Albumin Urine Color Ltyellow Urine Appearance Clear Urine pH 6.0 Ur Specific [place] 1.015 Urine Protein Negative Urine Glucose (UA) Negative Urine Ketones Negative Urine Blood Negative Urine Nitrite Negative Urine Bilirubin Negative Urine Urobilinogen Negative Ur Leukocyte Esterase Negative RPR Titer LABS NOTED. Assessment: 04/27/18 15:07 WITHDRAWAL SYMPTOMS. Plan: CONTINUE DETOX. PATIENT SCHEDULED FOR D/C TOMORROW.
[2018-04-27] MEDS: THIAMINE HCL 100 MG TABLET (FP) PO SCH (22:21)
[2018-04-28] MEDS ORDERED: METHADONE HCL 5 MG TABLET (FOR DETOX USE ONLY) PO ONE (06:00)
[2018-04-28 06:19] VITALS: BP 122/75; PULSE 57; TEMP 97.1
--- NOTE | 2018-04-28 08:44 | DS ---
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 has not assessed nor evaluated the patient - Physical Exam Results Vital Signs: Vital Signs Temperature 97.1 F L 04/28/18 06:19 Pulse Rate 57 L 04/28/18 06:19 Respiratory Rate 18 04/28/18 06:19 Blood Pressure 122/75 04/28/18 06:19 O2 Sat by Pulse Oximetry (%) Pertinent Admission Physical Exam Findings: opiate withdrawal sx Laboratory Last Values WBC 6.5 K/mm3 (4.0-10.0) 04/23/18 07:00 RBC 4.20 M/mm3 (4.00-5.60) 04/23/18 07:00 Hgb 13.5 GM/dL (11.7-16.9) 04/23/18 07:00 Hct 39.9 % (35.4-49) 04/23/18 07:00 MCV 94.9 fl (80-96) 04/23/18 07:00 MCH 32.1 pg (25.7-33.7) 04/23/18 07:00 MCHC 33.9 g/dl (32.0-35.9) 04/23/18 07:00 RDW 13.1 % (11.9-15.9) 04/23/18 07:00 Plt Count 147 K/MM3 (134-434) 04/23/18 07:00 MPV 10.2 fl (7.5-11.1) 04/23/18 07:00 Sodium 142 mmol/L (136-145) 04/23/18 07:00 Potassium 4.1 mmol/L (3.5-5.1) 04/23/18 07:00 Chloride 106 mmol/L (98-107) 04/23/18 07:00 Carbon Dioxide 29 mmol/L (21-32) 04/23/18 07:00 Anion Gap 7 MMOL/L (8-16) L 04/23/18 07:00 BUN 13 mg/dL (7-18) 04/23/18 07:00 Creatinine 0.8 mg/dL (0.55-1.3) 04/23/18 07:00 Creat Clearance w eGFR > 60 (>60) 04/23/18 07:00 Random Glucose 85 mg/dL (74-106) 04/23/18 07:00 Calcium 8.9 mg/dL (8.5-10.1) 04/23/18 07:00 Total Bilirubin 0.8 mg/dL (0.2-1) 04/23/18 07:00 AST 14 U/L (15-37) L 04/23/18 07:00 ALT 24 U/L (13-61) 04/23/18 07:00 Alkaline Phosphatase 69 U/L (45-117) 04/23/18 07:00 Total Protein 6.3 g/dl (6.4-8.2) L 04/23/18 07:00 Albumin 3.7 g/dl (3.4-5.0) 04/23/18 07:00 Urine Color Ltyellow 04/23/18 08:00 Urine Appearance Clear 04/23/18 08:00 Urine pH 6.0 (5.0-8.0) 04/23/18 08:00 Ur Specific [place] 1.015 (1.010-1.035) 04/23/18 08:00 Urine Protein Negative (NEGATIVE) 04/23/18 08:00 Urine Glucose (UA) Negative (NEGATIVE) 04/23/18 08:00 Urine Ketones Negative (NEGATIVE) 04/23/18 08:00 Urine Blood Negative (NEGATIVE) 04/23/18 08:00 Urine Nitrite Negative (NEGATIVE) 04/23/18 08:00 Urine Bilirubin Negative (<2.0 mg/dL) 04/23/18 08:00 Urine Urobilinogen Negative mg/dL (0.2-1.0) 04/23/18 08:00 Ur Leukocyte Esterase Negative (NEGATIVE) 04/23/18 08:00 RPR Titer Nonreactive (NONREACTIVE) 04/23/18 07:00 lab noted - Treatment Hospital Course: Detox Protocol Followed, Detoxed Safely, Responded well, Discharged Condition Good, Rehab Referral Accepted Patient has Accepted a Rehab Referral to: [facility] - Medication Discharge Medications: Ambulatory Orders NK [No Known Home Medication] 03/20/18 - Diagnosis (1) Opioid dependence with withdrawal Status: Acute (2) Nicotine dependence Status: Acute Qualifiers: Nicotine product type: cigarettes Substance use status: in withdrawal Qualified Code(s): F17.213 - Nicotine dependence, cigarettes, with withdrawal - AMA Did Patient Leave Against Medical Advice: No
== END 2018-04-28 06:55 | disposition home or self-care (01) | DRG 773 ==
LOC: YASAS 15:29 → Y3N 23:10
PROVIDERS: ADMIT Neuromusculoskeletal Medicine & OMM; ATTEND Neuromusculoskeletal Medicine & OMM
PROC: HZ2ZZZZ Detoxification Services for Substance Abuse Treatment (ICD-10-PCS; principal; 2018-04-22)
DX: F11.23 Opioid dependence with withdrawal (principal); F14.20 Cocaine dependence, uncomplicated; F17.213 Nicotine dependence, cigarettes, with withdrawal; R00.1 Bradycardia, unspecified; Z59.0 Homelessness
CPT/HCPCS: 36415; 80053; 81003; 85027; 86593; J0475

== ENCOUNTER 2018-05-27 13:24 | Inpatient (IN) | payer OTHER ==
[2018-05-27 15:18] VITALS: BMI 27.3
--- NOTE | 2018-05-27 16:22 | HP ---
COWS - Scale Resting Pulse: 0= [place] 80 or Below Sweatin= Chills/Flushing Restless Observation: 1= Difficult to Sit Still Pupil Size: 2= Moderately Dilated Bone or Joint Aches: 1= Mild Discomfort Runny Nose/ Eye Tearin= Runny Nose/Eyes GI Upset > 30mins: 1= Stomach Cramp Tremor Observation: 1= Tremor [place], Not Seen Yawning Observation: 1= 1-2x During Session Anxiety or Irritability: 2=Irritable/Anxious Goose Flesh Skin: 0=Smooth Skin COWS Score: 12 CIWA Score - Admission Criteria [facility]ASAS Guidelines: Admission for Medically Managed Detox: Requires at least one of the followin. CIWA greater than 12 2. Seizures within the past 24 hours 3. Delirium tremens within the past 24 hours 4. Hallucinations within the past 24 hours 5. Acute intervention needed for co occurring medical disorder 6. Acute intervention needed for co occurring psychiatric disorder 7. Severe withdrawal that cannot be handled at a lower level of care (continued vomiting, continued diarrhea, abnormal vital signs) requiring intravenous medication and/or fluids 8. Admission ROS [facility] - [facility] Chief Complaint: " I want to get clean, I don't this habit to get more deep" Allergies/Adverse Reactions: Allergies Allergy/AdvReac Type Severity Reaction Status Date / Time No Known Allergies Allergy Verified 05/27/18 15:36 History of Present Illness: 43 yo male with hx of nicotine and heroin (nasal) dependence is here seeking detox, self referred, one of multiple admissions d/t relapse, c/o of withdrawal symptoms: body aches,, fatigue. Last detox one month ago at [facility] 04/22/18 -. Denies suicidal / homicidal ideation. Denies hx of over dose seizures or black outs. Denies psychiatric or medical conditions. Denies any significant period of sobriety. Exam Limitations: No Limitations - Ebola screening Have you traveled outside of the country in the last 21 days: No Have you had contact with anyone from an Ebola affected area: No Have you been sick,other than usual withdrawal symptoms: No Do you have a fever: No - Review of Systems Constitutional: Chills, Loss of Appetite, Weakness, Unintentional Wgt. Loss (20 lbs weight loss in past couple of months) EENT: reports: Nose Congestion, Other (runny nose) Respiratory: reports: No Symptoms reported Cardiac: reports: No Symptoms Reported GI: reports: Poor Appetite, Poor Fluid Intake, Abdominal cramping : reports: No Symptoms Reported Musculoskeletal: reports: Back Pain, Joint Pain Integumentary: reports: No Symptoms Reported Neuro: reports: No Symptoms reported Endocrine: reports: Excessive Sweating, Increased Thirst Hematology: reports: No Symptoms Reported Psychiatric: reports: Orientated x3, Anxious Other Systems: Reviewed and Negative Patient History - Patient Medical History Hx Anemia: No Hx Asthma: No Hx Chronic Obstructive Pulmonary Disease (COPD): No Hx Cancer: No Hx Cardiac Disorders: No Hx Congestive Heart Failure: No Hx Hypertension: No Hx Hypercholesterolemia: No Hx Pacemaker: No HX Cerebrovascular Accident: No Hx Seizures: No Hx Dementia: No Hx Diabetes: No Hx Gastrointestinal Disorders: No Hx Liver Disease: No Hx Genitourinary Disorders: No Hx Sexually Transmitted Disorders: No Hx Renal Disease (ESRD): No Hx Thyroid Disease: No Hx Human Immunodeficiency Virus (HIV): No (last 09/10 negative) Hx Hepatitis C: No Hx Depression: No Hx Suicide Attempt: No Hx Bipolar Disorder: No Hx Schizophrenia: No - Patient Surgical History Past Surgical History: No Hx Neurologic Surgery: No Hx Cataract Extraction: No Hx Cardiac Surgery: No Hx Lung Surgery: No Hx Breast Surgery: No Hx Breast Biopsy: No Hx Abdominal Surgery: No Hx Appendectomy: No Hx Cholecystectomy: No Hx Genitourinary Surgery: No Hx Section: No Hx Orthopedic Surgery: No Anesthesia Reaction: No - PPD History Documented Results: Negative w/o proof Date: 03/22/18 - Reproductive History Patient : No - Smoking Cessation Smoking history: Current every day smoker Have you smoked in the past 12 months: Yes Aproximately how many cigarettes per day: 30 Cigars Per Day: 0 Hx Chewing Tobacco Use: No Initiated information on smoking cessation: Yes 'Breaking Loose' booklet given: 05/27/18 - Substance & Tx. History Hx Alcohol Use: No Hx Substance Use: Yes Substance Use Type: Cocaine, Heroin Hx Substance Use Treatment: Yes ( Last detox one month ago at [facility] 04/22/18 -) - Substances Abused Heroin Route: Inhalation Frequency: Daily Amount used: 6 bags Age of first use: 18 Date of Last Use: 05/27/18 Family Disease History - Family Disease History Family Disease History: Other: Brother (opioid use disorder ) Admission Physical Exam [facility] - Vital Signs Vital Signs: Vital Signs - 24 hr 05/27/18 15:16 Temperature 98.1 F Pulse Rate 71 Respiratory 20 Rate Blood Pressure 116/69 - Physical General Appearance: Yes: Appropriately Dressed, Mild Distress, Thin, Anxious HEENTM: Yes: EOMI, Hearing grossly Normal, Normal ENT Inspection, Normal Voice, ARLETH, Pharynx Normal, Rhinorrhea Respiratory: Yes: Chest Non-Tender, Lungs Clear, Normal Breath Sounds, No Respiratory Distress, No Accessory Muscle Use Neck: Yes: Within Normal Limits Breast: Yes: Breast Exam Deferred Cardiology: Yes: Regular Rhythm, Regular Rate Abdominal: Yes: Normal Bowel Sounds, Non Tender, Flat, Soft Genitourinary: Yes: Within Normal Limits Back: Yes: Normal Inspection Musculoskeletal: Yes: full range of Motion, Gait Steady, Pelvis Stable Extremities: Yes: Normal Capillary Refill, Normal Inspection, Normal Range of Motion, Non-Tender 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: 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: 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 NML intact, Fully Oriented, Alert, Motor Strength 5/5, Depressed Affect Integumentary: Yes: Normal Color, Warm, Moist Lymphatic: Yes: Within Normal Limits - Diagnostic (1) Nicotine dependence Current Visit: Yes Status: Acute Qualifiers: Nicotine product type: cigarettes Substance use status: in withdrawal Qualified Code(s): F17.213 - Nicotine dependence, cigarettes, with withdrawal (2) Opioid dependence with withdrawal Current Visit: Yes Status: Acute (3) Weight loss Current Visit: Yes Status: Acute Cleared for Admission [facility] - Detox or Rehab [facility] Level of Care: Medically Managed Detox Regimen/Protocol: Methadone [facility] Breath Alcohol Content Breath Alcohol Content: 0 Urine Drug Screen - Results Drug Screen Negative: No Urine Drug Screen Results: OPI-Opiates, MTD-Methadone, FEN-Fentanyl Inpatient Rehab Admission - Rehab Decision to Admit Inpatient rehab admission?: No
[2018-05-27] MEDS ORDERED: MAGNESIUM CITRATE 300 ML BOTTLE PO PRN (16:24)
[2018-05-27] MEDS ORDERED: METHADONE HCL 10 MG TABLET (FOR DETOX USE ONLY) PO ONE ×2 (16:24→23:00)
[2018-05-27] MEDS ORDERED: IBUPROFEN 400 MG TABLET (FP) PO PRN (16:24)
[2018-05-27] MEDS ORDERED: NICOTINE POLACRILEX 2 MG GUM BC PRN (16:24)
[2018-05-27] MEDS ORDERED: MENTHOL/PHENOL 1 EACH UD MM PRN (16:24)
[2018-05-27] MEDS ORDERED: P-EPHED 60MG/TRIPROLIDI 2.5MG TABLET PO PRN (16:24)
[2018-05-27] MEDS ORDERED: MAG HYDROX/AL HYDROX/SIMETH 30 ML UNIT-DOSE CUP PO PRN (16:24)
[2018-05-27] MEDS ORDERED: LOPERAMIDE HCL 2 MG CAPSULE PO PRN (16:24)
[2018-05-27] MEDS ORDERED: guaiFENesin/D-METHORPHAN HB 10 ML UNIT-DOSE CUPS PO PRN (16:24)
[2018-05-27] MEDS ORDERED: MAGNESIUM HYDROX 2400MG/30ML ORAL SUSPENSION 30 ML CUP PO PRN (16:24)
[2018-05-27] MEDS: diazePAM 5 MG TABLET PO PRN (18:13)
[2018-05-27] MEDS ORDERED: MELATONIN 5 MG TABLETS PO PRN (22:00)
[2018-05-27] MEDS: THIAMINE HCL 100 MG TABLET (FP) PO SCH (22:22)
[2018-05-27 22:56] LABS: URINE APPEARANCE CLEAR; URINE BILIRUBIN NEGATIVE (<2.0 mg/dL); URINE COLOR LTYELLOW; URINE GLUCOSE (UA) NEGATIVE (NEGATIVE); URINE KETONE NEGATIVE (NEGATIVE); URINE LEUK ESTERASE NEGATIVE (NEGATIVE); URINE NITRITE NEGATIVE (NEGATIVE); URINE PROTEIN NEGATIVE (NEGATIVE); URINE UROBILINOGEN NEGATIVE mg/dL (0.2-1.0)
[2018-05-28] MEDS ORDERED: METHADONE HCL 10 MG TABLET (FOR DETOX USE ONLY) PO ONE (10:00)
[2018-05-28 10:34] LABS: ALBUMIN 3.8 g/dl (3.4-5.0); ALK PHOS 75 U/L (45-117); ANION GAP 6 MMOL/L (8-16); BILIRUBIN,TOTAL 0.6 mg/dL (0.2-1); BLOOD UREA NITROGEN 11 mg/dL (7-18); CALCIUM 8.8 mg/dL (8.5-10.1); CHLORIDE 102 mmol/L (98-107); CO2 29 mmol/L (21-32); CREATININE 0.8 mg/dL (0.55-1.3); GLUCOSE,RANDOM 85 mg/dL (74-106); POTASSIUM 4.7 mmol/L (3.5-5.1); SGOT/AST 12 U/L (15-37); SGPT/ALT 17 U/L (13-61); SODIUM 137 mmol/L (136-145); TOT PROT 6.5 g/dl (6.4-8.2)
[2018-05-28] MEDS: NICOTINE 14 MG/24 HOURS TOPICAL PATCH TD SCH (10:47)
[2018-05-28] MEDS: PRENATAL VITAMINS W/ FOLIC ACID TABLET (FP) PO SCH (10:47)
[2018-05-28] MEDS: diazePAM 5 MG TABLET PO PRN ×2 (10:48→22:20)
[2018-05-28 11:01] LABS: HEMATOCRIT 42.4 % (35.4-49); HEMOGLOBIN 14.6 GM/dL (11.7-16.9); MCH 32.7 pg (25.7-33.7); MCHC 34.4 g/dl (32.0-35.9); MEAN CELL VOLUME 95.2 fl (80-96); MEAN PLT VOLUME 10.1 fl (7.5-11.1); PLATELET COUNT 142 K/MM3 (134-434); RBC 4.45 M/mm3 (4.00-5.60); RDW 13.7 % (11.9-15.9); WHITE BLOOD COUNT 7.1 K/mm3 (4.0-10.0)
--- NOTE | 2018-05-28 11:06 | PN ---
BHS COWS - Scale Resting Pulse: 0= [place] 80 or Below Sweatin= Chills/Flushing Restless Observation: 3= Extraneous Movement Pupil Size: 1= Pupils >than Normal Bone or Joint Aches: 2= Severe Diffuse Aches Runny Nose/ Eye Tearin= Runny Nose/Eyes GI Upset > 30mins: 2= Nausea/Diarrhea Tremor Observation of Outstretched Hands: 2= Slight Tremor Visible Yawning Observation: 1= 1-2x During Session Anxiety or Irritability: 2=Irritable/Anxious Goose Flesh Skin: 0=Smooth Skin COWS Score: 16 BHS Progress Note (SOAP) Subjective: alert,irritable,anxious,interrupted sleep,pain in the body Objective: 05/28/18 11:05 Vital Signs Temperature 99.0 F 05/28/18 09:29 Pulse Rate 65 05/28/18 09:29 Respiratory Rate 18 05/28/18 09:29 Blood Pressure 104/58 L 05/28/18 09:29 O2 Sat by Pulse Oximetry (%) 05/28/18 11:05 Laboratory Last Values Sodium 137 mmol/L (136-145) 05/28/18 07:00 Potassium 4.7 mmol/L (3.5-5.1) 05/28/18 07:00 Chloride 102 mmol/L (98-107) 05/28/18 07:00 Carbon Dioxide 29 mmol/L (21-32) 05/28/18 07:00 Anion Gap 6 MMOL/L (8-16) L 05/28/18 07:00 BUN 11 mg/dL (7-18) 05/28/18 07:00 Creatinine 0.8 mg/dL (0.55-1.3) 05/28/18 07:00 Creat Clearance w eGFR > 60 (>60) 05/28/18 07:00 Random Glucose 85 mg/dL (74-106) 05/28/18 07:00 Calcium 8.8 mg/dL (8.5-10.1) 05/28/18 07:00 Total Bilirubin 0.6 mg/dL (0.2-1) 05/28/18 07:00 AST 12 U/L (15-37) L 05/28/18 07:00 ALT 17 U/L (13-61) 05/28/18 07:00 Alkaline Phosphatase 75 U/L (45-117) 05/28/18 07:00 Total Protein 6.5 g/dl (6.4-8.2) 05/28/18 07:00 Albumin 3.8 g/dl (3.4-5.0) 05/28/18 07:00 Urine Color Ltyellow 05/27/18 22:45 Urine Appearance Clear 05/27/18 22:45 Urine pH 7.0 (5.0-8.0) 05/27/18 22:45 Ur Specific [place] 1.013 (1.010-1.035) 05/27/18 22:45 Urine Protein Negative (NEGATIVE) 05/27/18 22:45 Urine Glucose (UA) Negative (NEGATIVE) 05/27/18 22:45 Urine Ketones Negative (NEGATIVE) 05/27/18 22:45 Urine Blood Negative (NEGATIVE) 05/27/18 22:45 Urine Nitrite Negative (NEGATIVE) 05/27/18 22:45 Urine Bilirubin Negative (<2.0 mg/dL) 05/27/18 22:45 Urine Urobilinogen Negative mg/dL (0.2-1.0) 05/27/18 22:45 Ur Leukocyte Esterase Negative (NEGATIVE) 05/27/18 22:45 labs pending Assessment: 05/28/18 11:06 withdrawal symptom Plan: continue detox
[2018-05-28] MEDS: TOLNAFTATE 1% CREAM 15 GM TUBE TP SCH ×2 (12:51→22:22)
[2018-05-28] MEDS: THIAMINE HCL 100 MG TABLET (FP) PO SCH (22:20)
[2018-05-29] MEDS ORDERED: METHADONE HCL 5 MG TABLET (FOR DETOX USE ONLY) PO ONE (10:00)
[2018-05-29] MEDS: diazePAM 5 MG TABLET PO PRN ×2 (10:14→22:12)
[2018-05-29] MEDS: NICOTINE 14 MG/24 HOURS TOPICAL PATCH TD SCH (10:15)
[2018-05-29] MEDS: PRENATAL VITAMINS W/ FOLIC ACID TABLET (FP) PO SCH (10:15)
[2018-05-29] MEDS: TOLNAFTATE 1% CREAM 15 GM TUBE TP SCH ×2 (10:15→22:12)
--- NOTE | 2018-05-29 14:59 | PN ---
BHS COWS - Scale Resting Pulse: 0= [place] 80 or Below Sweatin= No chills or Flushing Restless Observation: 0= Sits Still Pupil Size: 0= Normal to Room Light Bone or Joint Aches: 0= None Runny Nose/ Eye Tearin= None GI Upset > 30mins: 0= None Tremor Observation of Outstretched Hands: 0= None Yawning Observation: 0= None Anxiety or Irritability: 0= None Goose Flesh Skin: 0=Smooth Skin COWS Score: 0 BHS Progress Note (SOAP) Subjective: pt states he is feeling fine wiht the opioid detox protocol O: Vital Signs - 24 hr 05/28/18 05/28/18 05/29/18 17:20 21:24 00:30 Temperature 97.9 F 97.9 F Pulse Rate 60 61 Respiratory 18 18 18 Rate Blood Pressure 107/66 108/52 L 05/29/18 05/29/18 05/29/18 03:30 07:55 09:18 Temperature 97.2 F L 97.3 F L Pulse Rate 60 67 Respiratory 18 18 18 Rate Blood Pressure 99/56 L 112/59 L 05/29/18 12:58 Temperature 98.3 F Pulse Rate 74 Respiratory 18 Rate Blood Pressure 111/76 Laboratory Tests 05/27/18 05/28/18 05/28/18 22:45 07:00 07:00 WBC 7.1 RBC 4.45 Hgb 14.6 Hct 42.4 MCV 95.2 MCH 32.7 MCHC 34.4 RDW 13.7 Plt Count 142 MPV 10.1 Sodium 137 Potassium 4.7 Chloride 102 Carbon Dioxide 29 Anion Gap 6 L BUN 11 Creatinine 0.8 Creat Clearance w eGFR > 60 Random Glucose 85 Calcium 8.8 Total Bilirubin 0.6 AST 12 L ALT 17 Alkaline Phosphatase 75 Total Protein 6.5 Albumin 3.8 Urine Color Ltyellow Urine Appearance Clear Urine pH 7.0 Ur Specific [place] 1.013 Urine Protein Negative Urine Glucose (UA) Negative Urine Ketones Negative Urine Blood Negative Urine Nitrite Negative Urine Bilirubin Negative Urine Urobilinogen Negative Ur Leukocyte Esterase Negative a/p: continue opioid detox protocol- pt does not want to consider outpt MAT- says he would prefer abstinence, will be going to rehab after detox
[2018-05-29] MEDS: ACETAMINOPHEN 325 MG TABLET (FP) PO PRN (18:05)
[2018-05-29] MEDS: THIAMINE HCL 100 MG TABLET (FP) PO SCH (22:12)
[2018-05-30] MEDS ORDERED: METHADONE HCL 5 MG TABLET (FOR DETOX USE ONLY) PO ONE (10:00)
--- NOTE | 2018-05-30 10:11 | PN ---
BHS Progress Note (SOAP) Subjective: alert,irritable,anxious,interrupted sleep,pain in the body Objective: 05/30/18 10:10 Vital Signs Temperature 98.1 F 05/30/18 09:46 Pulse Rate 60 05/30/18 09:46 Respiratory Rate 18 05/30/18 09:46 Blood Pressure 108/73 05/30/18 09:46 O2 Sat by Pulse Oximetry (%) Assessment: 05/30/18 10:11 withdrawal symptom Plan: continue detox
[2018-05-30] MEDS: PRENATAL VITAMINS W/ FOLIC ACID TABLET (FP) PO SCH (10:47)
[2018-05-30] MEDS: NICOTINE 14 MG/24 HOURS TOPICAL PATCH TD SCH (10:47)
[2018-05-30] MEDS: TOLNAFTATE 1% CREAM 15 GM TUBE TP SCH ×2 (10:48→22:17)
[2018-05-30] MEDS: ACETAMINOPHEN 325 MG TABLET (FP) PO PRN (10:57)
[2018-05-30] MEDS: THIAMINE HCL 100 MG TABLET (FP) PO SCH (22:15)
[2018-05-31] MEDS ORDERED: METHADONE HCL 10 MG TABLET (FOR DETOX USE ONLY) PO ONE (10:00)
[2018-05-31] MEDS: PRENATAL VITAMINS W/ FOLIC ACID TABLET (FP) PO SCH (10:39)
[2018-05-31] MEDS: NICOTINE 14 MG/24 HOURS TOPICAL PATCH TD SCH (10:39)
[2018-05-31] MEDS: TOLNAFTATE 1% CREAM 15 GM TUBE TP SCH ×2 (10:39→23:10)
--- NOTE | 2018-05-31 13:25 | PN ---
BHS Progress Note (SOAP) Subjective: low back pain sweats Objective: 05/31/18 13:24 Vital Signs Temperature 98.0 F 05/31/18 13:20 Pulse Rate 72 05/31/18 13:20 Respiratory Rate 18 05/31/18 13:20 Blood Pressure 150/81 05/31/18 13:20 O2 Sat by Pulse Oximetry (%) [id number] ambulating no acute distress Assessment: 05/31/18 13:25 mild withdrawal sx Plan: continue detox increase fluids motrin/tylenol prn d/c in am
[2018-05-31] MEDS: THIAMINE HCL 100 MG TABLET (FP) PO SCH (23:10)
[2018-06-01] MEDS ORDERED: METHADONE HCL 5 MG TABLET (FOR DETOX USE ONLY) PO ONE (06:00)
[2018-06-01 06:17] VITALS: BP 104/60; PULSE 53; TEMP 97
--- NOTE | 2018-06-01 08:23 | DS ---
[facility] Detox Discharge Summary Admission Date: 05/27/18 Discharge Date: 06/01/18 - History Present History: Cocaine Dependence, Opioid Dependence - Physical Exam Results Vital Signs: Vital Signs Temperature 97.0 F L 06/01/18 06:00 Pulse Rate 53 L 06/01/18 06:00 Respiratory Rate 18 06/01/18 06:00 Blood Pressure 104/60 06/01/18 06:00 O2 Sat by Pulse Oximetry (%) - Treatment Hospital Course: Detox Protocol Followed, Detoxed Safely, Responded well, Discharged Condition Good, Rehab Referral Accepted - Medication Discharge Medications: Ambulatory Orders NK [No Known Home Medication] 05/27/18 - AMA Did Patient Leave Against Medical Advice: No (referred to [facility] inpatient rehab)
== END 2018-06-01 09:07 | disposition home or self-care (01) | DRG 773 ==
LOC: YASAS 13:24 → Y6N 17:05
PROVIDERS: ADMIT Surgery; ATTEND Surgery
PROC: HZ2ZZZZ Detoxification Services for Substance Abuse Treatment (ICD-10-PCS; principal; 2018-05-27)
DX: F11.23 Opioid dependence with withdrawal (principal); F17.210 Nicotine dependence, cigarettes, uncomplicated; Z59.0 Homelessness
CPT/HCPCS: 36415; 80053; 81003; 85027

== ENCOUNTER 2019-05-13 12:59 | Inpatient (IN) | payer OTHER ==
--- NOTE | 2019-05-13 13:36 | BHS.RME ---
Substance Use & Tx History - Substance Use History Opiates (Heroin) Substance amount: 8 bags Frequency of use: Daily Substance route: Inhalation (ex: sniffing or snorting) Date of Last Use: 05/13/19 Cocaine (Powder) Substance amount: 2 bags Frequency of use: Daily Substance route: Inhalation (ex: sniffing or snorting) Date of Last Use: 05/12/19 Nicotine Substance amount: 1.5 packs Frequency of use: Daily Substance route: Smoking Date of Last Use: 05/13/19 Physical/Psych/Mental Status - Behavior General Behavior: Increased activity (restlessness, agitation) Eye Contact: Normal - Cooperativeness Cooperativeness: Cooperative - Thinking Thought Processes: Tight, Logical, Goal Directed Thought content: Future oriented - Physical Health Problems Is patient presently having any pain?: No Does patient presently have any injuries (include location): No Does patient currently have a fever: No Is patient : No COWS - Scale Resting Pulse: 0= [place] 80 or Below Sweatin= Streaming Sweat Restless Observation: 1= Difficult to Sit Still Pupil Size: 1= Pupils >than Normal Bone or Joint Aches: 4=Acute Joint/Muscle Pain Runny Nose/ Eye Tearin= Nasal Congestion GI Upset > 30mins: 2= Nausea/Diarrhea Tremor Observation: 1= Tremor [place], Not Seen Yawning Observation: 1= 1-2x During Session Anxiety or Irritability: 1=Feels Anxious/Irritable Goose Flesh Skin: 0=Smooth Skin COWS Score: 16
[2019-05-13 14:37] VITALS: BMI 27.9
--- NOTE | 2019-05-13 15:04 | HP ---
COWS - Scale Resting Pulse: 0= [place] 80 or Below Sweatin= Streaming Sweat Restless Observation: 1= Difficult to Sit Still Pupil Size: 1= Pupils >than Normal Bone or Joint Aches: 4=Acute Joint/Muscle Pain Runny Nose/ Eye Tearin= Nasal Congestion GI Upset > 30mins: 2= Nausea/Diarrhea Tremor Observation: 1= Tremor [place], Not Seen Yawning Observation: 1= 1-2x During Session Anxiety or Irritability: 1=Feels Anxious/Irritable Goose Flesh Skin: 0=Smooth Skin COWS Score: 16 CIWA Score - Admission Criteria OASAS Guidelines: Admission for Medically Managed Detox: Requires at least one of the followin. CIWA greater than 12 2. Seizures within the past 24 hours 3. Delirium tremens within the past 24 hours 4. Hallucinations within the past 24 hours 5. Acute intervention needed for co occurring medical disorder 6. Acute intervention needed for co occurring psychiatric disorder 7. Severe withdrawal that cannot be handled at a lower level of care (continued vomiting, continued diarrhea, abnormal vital signs) requiring intravenous medication and/or fluids 8. Admitting History and Physical - Admission History of Present Illness: Pt comes seeking detox from heroin. Has done rehab at [facility]. Relapsed 06/25/2018. Heroin: First use 17 years old, Last - today, 8 bags daily, sniffs. Never injected. Has had an OD in the past. States he is not in a methadone program. His brother gave him some methadone 2 days ago. Denies use of fentanyl. Likely was mixed with his heroin. Cocaine: First - 21 years old, last - 2 days ago, sniffs. Never injected Tobacco: 1.5 ppd since 19 years old Denies EtOH use. PMH: none PSH: none Psych: none Meds: none All: none Soc: lives in assisted. No family around. - Smoking History Smoking history: Current every day smoker Have you smoked in the past 12 months: Yes Aproximately how many cigarettes per day: 30 - Alcohol/Substance Use Hx Alcohol Use: No History of Substance Use: reports: Cocaine, Heroin Admission ROS S - HPI Allergies/Adverse Reactions: Allergies Allergy/AdvReac Type Severity Reaction Status Date / Time No Known Allergies Allergy Verified 05/13/19 14:29 Patient History - Patient Medical History Hx Anemia: No Hx Asthma: No Hx Chronic Obstructive Pulmonary Disease (COPD): No Hx Cancer: No Hx Cardiac Disorders: No Hx Congestive Heart Failure: No Hx Hypertension: No Hx Hypercholesterolemia: No Hx Pacemaker: No HX Cerebrovascular Accident: No Hx Seizures: No Hx Dementia: No Hx Diabetes: No Hx Gastrointestinal Disorders: No Hx Liver Disease: No Hx Genitourinary Disorders: No Hx Sexually Transmitted Disorders: No Hx Renal Disease (ESRD): No Hx Thyroid Disease: No Hx Human Immunodeficiency Virus (HIV): No (last 09/10 negative) Hx Hepatitis C: No Hx Depression: No Hx Suicide Attempt: No Hx Bipolar Disorder: No Hx Schizophrenia: No - Patient Surgical History Past Surgical History: No Hx Neurologic Surgery: No Hx Cataract Extraction: No Hx Cardiac Surgery: No Hx Lung Surgery: No Hx Breast Surgery: No Hx Breast Biopsy: No Hx Abdominal Surgery: No Hx Appendectomy: No Hx Cholecystectomy: No Hx Genitourinary Surgery: No Hx Section: No Hx Orthopedic Surgery: No Anesthesia Reaction: No - PPD History Previous Implant?: Yes Documented Results: Negative w/proof Date: 03/22/18 Results: negative - Smoking Cessation Smoking history: Current every day smoker Have you smoked in the past 12 months: Yes Aproximately how many cigarettes per day: 30 Cigars Per Day: 0 Hx Chewing Tobacco Use: No Initiated information on smoking cessation: Yes 'Breaking Loose' booklet given: 05/13/19 - Substances abused Heroin Substance route: Inhalation Frequency: Daily Amount used: 8 bags Age of first use: 18 Date of last use: 05/13/19 Cocaine Substance route: Inhalation Frequency: 1-2 times per week Amount used: $20 Age of first use: 21 Date of last use: 05/11/19 Admission Physical Exam S - Vital Signs Vital Signs: Vital Signs - 24 hr 05/13/19 14:29 Temperature 97.5 F L Pulse Rate 54 L Respiratory 18 Rate Blood Pressure 107/60 - Physical General Appearance: Yes: Within Normal Limits HEENTM: Yes: Within Normal Limits, EOMI, Hearing grossly Normal, Normal ENT Inspection, Normal Voice, ARLETH Respiratory: Yes: Within Normal Limits, Chest Non-Tender, Lungs Clear, Normal Breath Sounds, No Respiratory Distress, No Accessory Muscle Use Neck: Yes: Within Normal Limits, No masses,lesions,Nodules, Other (no bruits). No: Thyroid enlarged, Thyroid tenderness Cardiology: Yes: Within Normal Limits, Regular Rhythm, Regular Rate, S1, S2. No : Murmur Abdominal: Yes: Within Normal Limits, Normal Bowel Sounds, Non Tender, Flat, Soft. 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 no focal deficits. 2+ reflexes throughout.) Breathalyzer - Breathalyzer Breathalyzer: 0 Urine Drug Screen - Test Device Lot number: [id number] Expiration date: 02/17/21 - Control Is test valid?: Yes - Results Drug screen NEGATIVE: No Urine drug screen results: ANA-Cocaine, FEN-Fentanyl, MOP-Opiates, MTD-Methadone Inpatient Rehab Admission - Rehab Decision to Admit Inpatient rehab admission?: No
[2019-05-13] MEDS ORDERED: ACETAMINOPHEN 325 MG TABLET (FP) PO PRN ×2 (15:14)
[2019-05-13] MEDS ORDERED: MAGNESIUM HYDROX 2400MG/30ML ORAL SUSPENSION 30 ML CUP PO PRN (15:14)
[2019-05-13] MEDS ORDERED: BISMUTH SUBSALICYLATE 262 MG/15 ML BTL PO PRN (15:14)
[2019-05-13] MEDS ORDERED: hydrOXYzine PAMOATE 25 MG CAPSULE (FP) PO PRN (15:14)
[2019-05-13] MEDS ORDERED: MAGNESIUM CITRATE 300 ML BOTTLE PO PRN (15:14)
[2019-05-13] MEDS ORDERED: METHOCARBAMOL 500 MG TABLET PO PRN (15:14)
[2019-05-13] MEDS ORDERED: cloNIDine HCL 0.1 MG TABLET PO PRN (15:14)
[2019-05-13] MEDS ORDERED: MELATONIN 5 MG TABLETS PO PRN (15:14)
[2019-05-13] MEDS ORDERED: MENTHOL/PHENOL 1 EACH UD MM PRN (15:14)
[2019-05-13] MEDS ORDERED: MAG HYDROX/AL HYDROX/SIMETH 30 ML UNIT-DOSE CUP PO PRN (15:14)
[2019-05-13] MEDS ORDERED: METHADONE HCL 10 MG TABLET (FOR DETOX USE ONLY) PO ONE (15:35)
[2019-05-13] MEDS: NICOTINE 21 MG/24 HOURS TOPICAL PATCH TD SCH (17:42)
[2019-05-13] MEDS: THIAMINE HCL 100 MG TABLET (FP) PO SCH (22:14)
[2019-05-14] MEDS ORDERED: METHADONE HCL 10 MG TABLET (FOR DETOX USE ONLY) ONE (09:36)
[2019-05-14] MEDS ORDERED: METHADONE HCL 5 MG TABLET (FOR DETOX USE ONLY) ONE (09:36)
--- NOTE | 2019-05-14 09:36 | PN ---
Teaching Attending Note Name of Resident: Jayesh Goins ATTENDING PHYSICIAN STATEMENT I saw and evaluated the patient. I reviewed the resident's note and discussed the case with the resident. I agree with the resident's findings and plan as documented. SUBJECTIVE: Agree with subjective resident findings OBJECTIVE: Agree with objective resident findings ASSESSMENT AND PLAN: Agree with plan to admit patient to detox.
[2019-05-14] MEDS ORDERED: METHADONE (DETOX) 20 MG, METHADONE (DETOX) 5 MG PO ONE (10:00)
[2019-05-14] MEDS: PRENATAL VITAMINS W/ FOLIC ACID TABLET (FP) PO SCH (10:12)
[2019-05-14] MEDS: NICOTINE 21 MG/24 HOURS TOPICAL PATCH TD SCH (10:38)
[2019-05-14 12:02] LABS: ALBUMIN 4.1 g/dl (3.4-5.0); BILIRUBIN,TOTAL 1.1 mg/dL (0.2-1); BLOOD UREA NITROGEN 10.7 mg/dL (7-18); CALCIUM 8.9 mg/dL (8.5-10.1); TOT PROT 6.7 g/dl (6.4-8.2)
[2019-05-14 12:26] LABS: HEMATOCRIT 41.7 % (35.4-49); MCH 32.2 pg (25.7-33.7); MCHC 33.7 g/dl (32.0-35.9); MEAN CELL VOLUME 95.6 fl (80-96); MEAN PLT VOLUME 10.8 fl (7.5-11.1); PLATELET COUNT 153 K/MM3 (134-434); RBC 4.36 M/mm3 (4.00-5.60); RDW 13.8 % (11.9-15.9); WHITE BLOOD COUNT 6.2 K/mm3 (4.0-10.0)
--- NOTE | 2019-05-14 14:54 | PN ---
BHS COWS - Scale Resting Pulse: 0= [place] 80 or Below Sweatin= Chills/Flushing Restless Observation: 0= Sits Still Pupil Size: 1= Pupils >than Normal Bone or Joint Aches: 1= Mild Discomfort Runny Nose/ Eye Tearin= Nasal Congestion GI Upset > 30mins: 1= Stomach Cramp Tremor Observation of Outstretched Hands: 2= Slight Tremor Visible Yawning Observation: 1= 1-2x During Session Anxiety or Irritability: 2=Irritable/Anxious Goose Flesh Skin: 3=Piloerection COWS Score: 13 BHS Progress Note (SOAP) Subjective: 44 years old male admitted on 05/13/19 for opiate withdrawal sx management treating with metahdone detox regiment feeling ok today trouble sleep through the night up early ate breakfast in day room discussed aftercare with staff patient prefers to go to [facility] inpatient chemical dependent rehab Objective: 05/14/19 14:55 Vital Signs Temperature 98.5 F 05/14/19 12:49 Pulse Rate 60 05/14/19 12:49 Respiratory Rate 18 05/14/19 12:49 Blood Pressure 98/57 L 05/14/19 12:49 O2 Sat by Pulse Oximetry (%) Laboratory Last Values WBC 6.2 K/mm3 (4.0-10.0) 05/14/19 07:35 RBC 4.36 M/mm3 (4.00-5.60) 05/14/19 07:35 Hgb 14.0 GM/dL (11.7-16.9) 05/14/19 07:35 Hct 41.7 % (35.4-49) 05/14/19 07:35 MCV 95.6 fl (80-96) 05/14/19 07:35 MCH 32.2 pg (25.7-33.7) 05/14/19 07:35 MCHC 33.7 g/dl (32.0-35.9) 05/14/19 07:35 RDW 13.8 % (11.9-15.9) 05/14/19 07:35 Plt Count 153 K/MM3 (134-434) 05/14/19 07:35 MPV 10.8 fl (7.5-11.1) 05/14/19 07:35 Sodium 138 mmol/L (136-145) 05/14/19 07:35 Potassium 4.0 mmol/L (3.5-5.1) 05/14/19 07:35 Chloride 106 mmol/L (98-107) 05/14/19 07:35 Carbon Dioxide 26 mmol/L (21-32) 05/14/19 07:35 Anion Gap 7 MMOL/L (8-16) L 05/14/19 07:35 BUN 10.7 mg/dL (7-18) 05/14/19 07:35 Creatinine 1.0 mg/dL (0.55-1.3) 05/14/19 07:35 Est GFR (CKD-EPI)AfAm 106.36 05/14/19 07:35 Est GFR (CKD-EPI)NonAf 91.77 05/14/19 07:35 Random Glucose 133 mg/dL (74-106) H 05/14/19 07:35 Calcium 8.9 mg/dL (8.5-10.1) 05/14/19 07:35 Total Bilirubin 1.1 mg/dL (0.2-1) H 05/14/19 07:35 AST 22 U/L (15-37) 05/14/19 07:35 ALT 22 U/L (13-61) 05/14/19 07:35 Alkaline Phosphatase 69 U/L (45-117) 05/14/19 07:35 Total Protein 6.7 g/dl (6.4-8.2) 05/14/19 07:35 Albumin 4.1 g/dl (3.4-5.0) 05/14/19 07:35 lab noted Assessment: 05/14/19 14:55 opiate withdrawal Plan: methadone regiment
[2019-05-14] MEDS: IBUPROFEN 400 MG TABLET (FP) PO PRN (15:35)
[2019-05-14] MEDS: THIAMINE HCL 100 MG TABLET (FP) PO SCH (22:55)
[2019-05-15] MEDS ORDERED: METHADONE HCL 10 MG TABLET (FOR DETOX USE ONLY) PO ONE (10:00)
[2019-05-15] MEDS: NICOTINE 21 MG/24 HOURS TOPICAL PATCH TD SCH (10:12)
[2019-05-15] MEDS: PRENATAL VITAMINS W/ FOLIC ACID TABLET (FP) PO SCH (10:12)
[2019-05-15] MEDS: IBUPROFEN 400 MG TABLET (FP) PO PRN ×2 (12:51→22:39)
--- NOTE | 2019-05-15 13:22 | PN ---
BHS COWS - Scale Resting Pulse: 0= [place] 80 or Below Sweatin= Chills/Flushing Restless Observation: 0= Sits Still Pupil Size: 1= Pupils >than Normal Bone or Joint Aches: 1= Mild Discomfort Runny Nose/ Eye Tearin= Nasal Congestion GI Upset > 30mins: 1= Stomach Cramp Tremor Observation of Outstretched Hands: 2= Slight Tremor Visible Yawning Observation: 0= None Anxiety or Irritability: 1=Feels Anxious/Irritable Goose Flesh Skin: 0=Smooth Skin COWS Score: 8 BHS Progress Note (SOAP) Subjective: 42 years old male admitted on 05/13/19 for opiate withdrawal sx management treating with methadone detox regiment ate breakfast resting in bed comfortably encourage the patient to attend behavior and psychosocial therapies groups and meetings as part of chemical dependent recovery Objective: 05/15/19 13:23 Vital Signs Temperature 97.8 F 05/15/19 09:10 Pulse Rate 59 L 05/15/19 09:10 Respiratory Rate 20 05/15/19 09:10 Blood Pressure 122/73 05/15/19 09:10 O2 Sat by Pulse Oximetry (%) Laboratory Last Values WBC 6.2 K/mm3 (4.0-10.0) 05/14/19 07:35 RBC 4.36 M/mm3 (4.00-5.60) 05/14/19 07:35 Hgb 14.0 GM/dL (11.7-16.9) 05/14/19 07:35 Hct 41.7 % (35.4-49) 05/14/19 07:35 MCV 95.6 fl (80-96) 05/14/19 07:35 MCH 32.2 pg (25.7-33.7) 05/14/19 07:35 MCHC 33.7 g/dl (32.0-35.9) 05/14/19 07:35 RDW 13.8 % (11.9-15.9) 05/14/19 07:35 Plt Count 153 K/MM3 (134-434) 05/14/19 07:35 MPV 10.8 fl (7.5-11.1) 05/14/19 07:35 Sodium 138 mmol/L (136-145) 05/14/19 07:35 Potassium 4.0 mmol/L (3.5-5.1) 05/14/19 07:35 Chloride 106 mmol/L (98-107) 05/14/19 07:35 Carbon Dioxide 26 mmol/L (21-32) 05/14/19 07:35 Anion Gap 7 MMOL/L (8-16) L 05/14/19 07:35 BUN 10.7 mg/dL (7-18) 05/14/19 07:35 Creatinine 1.0 mg/dL (0.55-1.3) 05/14/19 07:35 Est GFR (CKD-EPI)AfAm 106.36 05/14/19 07:35 Est GFR (CKD-EPI)NonAf 91.77 05/14/19 07:35 Random Glucose 133 mg/dL (74-106) H 05/14/19 07:35 Calcium 8.9 mg/dL (8.5-10.1) 05/14/19 07:35 Total Bilirubin 1.1 mg/dL (0.2-1) H 05/14/19 07:35 AST 22 U/L (15-37) 05/14/19 07:35 ALT 22 U/L (13-61) 05/14/19 07:35 Alkaline Phosphatase 69 U/L (45-117) 05/14/19 07:35 Total Protein 6.7 g/dl (6.4-8.2) 05/14/19 07:35 Albumin 4.1 g/dl (3.4-5.0) 05/14/19 07:35 RPR Titer Nonreactive (NONREACTIVE) 05/14/19 07:35 lab noted Assessment: 05/15/19 13:23 opiate withdrawal Plan: methadone regiment
[2019-05-15] MEDS: THIAMINE HCL 100 MG TABLET (FP) PO SCH (22:40)
[2019-05-16] MEDS ORDERED: METHADONE HCL 10 MG TABLET (FOR DETOX USE ONLY) ONE (09:01)
[2019-05-16] MEDS ORDERED: METHADONE HCL 5 MG TABLET (FOR DETOX USE ONLY) ONE (09:02)
[2019-05-16] MEDS ORDERED: METHADONE (DETOX) 10 MG, METHADONE (DETOX) 5 MG PO ONE (10:00)
[2019-05-16] MEDS: PRENATAL VITAMINS W/ FOLIC ACID TABLET (FP) PO SCH (10:06)
[2019-05-16] MEDS: NICOTINE 21 MG/24 HOURS TOPICAL PATCH TD SCH (10:08)
--- NOTE | 2019-05-16 11:22 | PN ---
BHS COWS - Scale Resting Pulse: 0= [place] 80 or Below Sweatin=Flushed/Facial Moisture Restless Observation: 0= Sits Still Pupil Size: 0= Normal to Room Light Bone or Joint Aches: 1= Mild Discomfort Runny Nose/ Eye Tearin= Nasal Congestion GI Upset > 30mins: 1= Stomach Cramp Tremor Observation of Outstretched Hands: 0= None Yawning Observation: 0= None Anxiety or Irritability: 1=Feels Anxious/Irritable Goose Flesh Skin: 0=Smooth Skin COWS Score: 6 BHS Progress Note (SOAP) Subjective: No complaints today Objective: 05/16/19 11:20 Laboratory Tests 05/14/19 05/14/19 05/14/19 07:35 07:35 07:35 WBC 6.2 RBC 4.36 Hgb 14.0 Hct 41.7 MCV 95.6 MCH 32.2 MCHC 33.7 RDW 13.8 Plt Count 153 MPV 10.8 Sodium 138 Potassium 4.0 Chloride 106 Carbon Dioxide 26 Anion Gap 7 L BUN 10.7 Creatinine 1.0 Est GFR (CKD-EPI)AfAm 106.36 Est GFR (CKD-EPI)NonAf 91.77 Random Glucose 133 H Calcium 8.9 Total Bilirubin 1.1 H AST 22 ALT 22 Alkaline Phosphatase 69 Total Protein 6.7 Albumin 4.1 RPR Titer Nonreactive Vital Signs - 24 hr 05/15/19 05/15/19 05/16/19 12:49 18:19 00:53 Temperature 98.8 F 97.6 F Pulse Rate 60 60 Respiratory 18 18 19 Rate Blood Pressure 93/60 96/64 05/16/19 05/16/19 05/16/19 03:30 05:35 08:47 Temperature 97.9 F 96.9 F L Pulse Rate 52 L 53 L Respiratory 18 18 17 Rate Blood Pressure 113/76 108/63 Pe Gnl: WDWN, in no distress Mental status: awake, alert, nl language Motor: moves all limbs well Assessment: 05/16/19 11:21 1. Opioid use disorder Plan: 1. continue methadone withdrawal protocol
[2019-05-16] MEDS: IBUPROFEN 400 MG TABLET (FP) PO PRN (14:39)
[2019-05-16] MEDS: THIAMINE HCL 100 MG TABLET (FP) PO SCH (22:57)
[2019-05-17 09:41] VITALS: BP 107/67; PULSE 62; TEMP 96.6
[2019-05-17] MEDS ORDERED: METHADONE HCL 10 MG TABLET (FOR DETOX USE ONLY) PO ONE (10:00)
[2019-05-17] MEDS: NICOTINE 21 MG/24 HOURS TOPICAL PATCH TD SCH (10:05)
[2019-05-17] MEDS: PRENATAL VITAMINS W/ FOLIC ACID TABLET (FP) PO SCH (10:05)
--- NOTE | 2019-05-17 10:08 | PN ---
BHS COWS - Scale Resting Pulse: 0= [place] 80 or Below Sweatin= No chills or Flushing Restless Observation: 0= Sits Still Pupil Size: 0= Normal to Room Light Bone or Joint Aches: 1= Mild Discomfort Runny Nose/ Eye Tearin= None GI Upset > 30mins: 0= None Tremor Observation of Outstretched Hands: 0= None Yawning Observation: 0= None Anxiety or Irritability: 1=Feels Anxious/Irritable Goose Flesh Skin: 0=Smooth Skin COWS Score: 2 BHS Progress Note (SOAP) Subjective: c/o mild withdrawal symptoms. Objective: 05/17/19 10:07 Vital Signs 05/17/19 05/17/19 05/17/19 03:30 07:23 08:47 Temperature 96.9 F L 96.6 F L Pulse Rate 52 L 62 Respiratory 18 16 18 Rate Blood Pressure 112/67 107/67 Laboratory Last Values WBC 6.2 K/mm3 (4.0-10.0) 05/14/19 07:35 RBC 4.36 M/mm3 (4.00-5.60) 05/14/19 07:35 Hgb 14.0 GM/dL (11.7-16.9) 05/14/19 07:35 Hct 41.7 % (35.4-49) 05/14/19 07:35 MCV 95.6 fl (80-96) 05/14/19 07:35 MCH 32.2 pg (25.7-33.7) 05/14/19 07:35 MCHC 33.7 g/dl (32.0-35.9) 05/14/19 07:35 RDW 13.8 % (11.9-15.9) 05/14/19 07:35 Plt Count 153 K/MM3 (134-434) 05/14/19 07:35 MPV 10.8 fl (7.5-11.1) 05/14/19 07:35 Sodium 138 mmol/L (136-145) 05/14/19 07:35 Potassium 4.0 mmol/L (3.5-5.1) 05/14/19 07:35 Chloride 106 mmol/L (98-107) 05/14/19 07:35 Carbon Dioxide 26 mmol/L (21-32) 05/14/19 07:35 Anion Gap 7 MMOL/L (8-16) L 05/14/19 07:35 BUN 10.7 mg/dL (7-18) 05/14/19 07:35 Creatinine 1.0 mg/dL (0.55-1.3) 05/14/19 07:35 Est GFR (CKD-EPI)AfAm 106.36 05/14/19 07:35 Est GFR (CKD-EPI)NonAf 91.77 05/14/19 07:35 Random Glucose 133 mg/dL (74-106) H 05/14/19 07:35 Calcium 8.9 mg/dL (8.5-10.1) 05/14/19 07:35 Total Bilirubin 1.1 mg/dL (0.2-1) H 05/14/19 07:35 AST 22 U/L (15-37) 05/14/19 07:35 ALT 22 U/L (13-61) 05/14/19 07:35 Alkaline Phosphatase 69 U/L (45-117) 05/14/19 07:35 Total Protein 6.7 g/dl (6.4-8.2) 05/14/19 07:35 Albumin 4.1 g/dl (3.4-5.0) 05/14/19 07:35 RPR Titer Nonreactive (NONREACTIVE) 05/14/19 07:35 Labs noted. Assessment: 05/17/19 10:08 AOX3, in no acute respiratory distress. Full ROM, ambulating in the unit. Mild Withdrawal symptoms. For discharge tomorrow. Plan: continue detox. D/C in AM.
--- NOTE | 2019-05-17 12:24 | DS ---
[facility] Detox Discharge Summary Admission Date: 05/13/19 Discharge Date: 05/17/19 - History Present History: Cocaine Dependence, Opioid Dependence Additional Comments: Pt is medically cleared and is discharged today. Pt completed the detox protocol. Pt is encouraged to follow-up with an outpatient CD program and also to follow-up with his pmd. Pt verbalized understanding. Pt is alert and oriented x3 and in no acute respiratory distress. Pertinent Past History: h/o heroin and cocaine use disorder. - Physical Exam Results Vital Signs: Vital Signs Temperature 96.6 F L 05/17/19 08:47 Pulse Rate 62 05/17/19 08:47 Respiratory Rate 18 05/17/19 08:47 Blood Pressure 107/67 05/17/19 08:47 O2 Sat by Pulse Oximetry (%) Vital Signs 05/17/19 05/17/19 07:23 08:47 Temperature 96.9 F L 96.6 F L Pulse Rate 52 L 62 Respiratory 16 18 Rate Blood Pressure 112/67 107/67 Laboratory Last Values WBC 6.2 K/mm3 (4.0-10.0) 05/14/19 07:35 RBC 4.36 M/mm3 (4.00-5.60) 05/14/19 07:35 Hgb 14.0 GM/dL (11.7-16.9) 05/14/19 07:35 Hct 41.7 % (35.4-49) 05/14/19 07:35 MCV 95.6 fl (80-96) 05/14/19 07:35 MCH 32.2 pg (25.7-33.7) 05/14/19 07:35 MCHC 33.7 g/dl (32.0-35.9) 05/14/19 07:35 RDW 13.8 % (11.9-15.9) 05/14/19 07:35 Plt Count 153 K/MM3 (134-434) 05/14/19 07:35 MPV 10.8 fl (7.5-11.1) 05/14/19 07:35 Sodium 138 mmol/L (136-145) 05/14/19 07:35 Potassium 4.0 mmol/L (3.5-5.1) 05/14/19 07:35 Chloride 106 mmol/L (98-107) 05/14/19 07:35 Carbon Dioxide 26 mmol/L (21-32) 05/14/19 07:35 Anion Gap 7 MMOL/L (8-16) L 05/14/19 07:35 BUN 10.7 mg/dL (7-18) 05/14/19 07:35 Creatinine 1.0 mg/dL (0.55-1.3) 05/14/19 07:35 Est GFR (CKD-EPI)AfAm 106.36 05/14/19 07:35 Est GFR (CKD-EPI)NonAf 91.77 05/14/19 07:35 Random Glucose 133 mg/dL (74-106) H 05/14/19 07:35 Calcium 8.9 mg/dL (8.5-10.1) 05/14/19 07:35 Total Bilirubin 1.1 mg/dL (0.2-1) H 05/14/19 07:35 AST 22 U/L (15-37) 05/14/19 07:35 ALT 22 U/L (13-61) 05/14/19 07:35 Alkaline Phosphatase 69 U/L (45-117) 05/14/19 07:35 Total Protein 6.7 g/dl (6.4-8.2) 05/14/19 07:35 Albumin 4.1 g/dl (3.4-5.0) 05/14/19 07:35 RPR Titer Nonreactive (NONREACTIVE) 05/14/19 07:35 Labs noted. Pertinent Admission Physical Exam Findings: withdrawal symptoms. - Treatment Hospital Course: Detox Protocol Followed, Detoxed Safely, Responded well, Discharged Condition Good - Medication Discharge Medications: Ambulatory Orders NK [No Known Home Medication] 05/27/18 - Diagnosis (1) Nicotine dependence Current Visit: No Status: Acute Qualifiers: Nicotine product type: cigarettes Substance use status: in withdrawal Qualified Code(s): F17.213 - Nicotine dependence, cigarettes, with withdrawal (2) Opioid dependence with withdrawal Current Visit: No Status: Acute (3) Cocaine dependence Current Visit: No Status: Chronic Qualifiers: Substance use status: uncomplicated Qualified Code(s): F14.20 - Cocaine dependence, uncomplicated - AMA Did Patient Leave Against Medical Advice: No
[2019-05-18] MEDS ORDERED: METHADONE HCL 5 MG TABLET (FOR DETOX USE ONLY) PO ONE (06:00)
== END 2019-05-17 10:55 | disposition home or self-care (01) | DRG 773 ==
LOC: YASAS 12:59 → Y3N 15:01
PROVIDERS: ADMIT Allergy & Immunology; ATTEND Allergy & Immunology
PROC: HZ2ZZZZ Detoxification Services for Substance Abuse Treatment (ICD-10-PCS; principal; 2019-05-13)
DX: F11.23 Opioid dependence with withdrawal (principal); F14.20 Cocaine dependence, uncomplicated; F17.210 Nicotine dependence, cigarettes, uncomplicated; Z59.0 Homelessness
CPT/HCPCS: 36415; 80053; 85027; 86593